=== PATIENT | female | born 1930 | race Caucasian/White ===

== ENCOUNTER 2017-10-23 09:21 | Inpatient (IN) ==
--- NOTE | 2017-10-23 09:37 | Emergency Department Report ---
General Adult HPI - General Stated complaint: poss sepss Time Seen by Provider: 10/23/17 09:37 Source: patient, other ([facility] STAFF) Mode of arrival: wheelchair Limitations: no limitations - History of Present Illness HPI narrative: 87-year-old female presents to the emergency department with a chief complaint of running a fever over the weekend. Her temperature was 101F. She was also noted to be in new onset atrial fibrillation by half-way staff. She denies any pain or discomfort. She is at baseline neuro status. She denies any other complaints or associated symptoms. She was at her care facility when her symptoms began. Symptoms been persistent in nature since onset. No other complaints or associated symptoms. - Related Data Home Medications Medication Instructions Recorded Confirmed Amlodipine [Norvasc] 5 mg PO DAILY 10/23/17 10/23/17 Aspirin Chewable [ASA] 81 mg PO DAILY 10/23/17 10/23/17 Ferrous Sulfate 325 mg PO DAILY 10/23/17 10/23/17 Losartan Potassium [Losartan 25 mg PO DAILY 10/23/17 10/23/17 Potassium] Omeprazole [Prilosec] 20 mg PO DAILY 10/23/17 10/23/17 Previous Rx's Medication Instructions Recorded Neurontin (gabapentin) 100 mg 100 mg PO BID #180 cap 01/26/17 capsule Allergies Allergy/AdvReac Type Severity Reaction Status Date / Time latanoprost Allergy Mild RASH Verified 06/12/08 10:42 timolol Allergy Mild RASH Verified 06/12/08 10:42 AROUND EYES brimonidine Allergy Unknown Verified 10/23/17 13:28 ALLERGAN Allergy Unknown Uncoded 10/23/17 13:28 Review of Systems Constitutional: Reports: fever (101F). Denies: chills Eyes: Denies: eye pain, eye discharge ENT: Denies: ear pain, throat pain Cardiovascular: Denies: chest pain, palpitations Respiratory: Denies: cough, dyspnea Gastrointestinal: Denies: abdominal pain, nausea, vomiting, diarrhea Genitourinary: Denies: urgency, dysuria Musculoskeletal: Denies: back pain, arthralgia Integumentary: Denies: erythema, rash Neurological: Denies: headache, numbness Psychiatric: Denies: anxiety, depression Endocrine: Denies: fatigue, heat or cold intolerance Hematological/Lymphatic: Denies: easy bleeding, easy bruising PFSH Patient Stated Medical History Cataracts Yes Cardiac Arrhythmia Yes Hypertension Yes Clinic Medical History (Last Updated 04/20/17 @ 09:42 by Karoline Orellana LPN) Hyponatremia (Chronic Medical) Glaucoma (Chronic Medical) Stress incontinence (Chronic Medical) Bilateral bunions (Chronic Medical) Peripheral neuropathy (Chronic Medical) Hypercholesterolemia (Chronic Medical) Constipation (Chronic Medical) HTN (hypertension) (Chronic Medical) Surgical History: D&C 1964. Hysterectomy with bladder suspension (ovaries left in) 1980. Left bunionectomy and repair of hammertoe L3 05/2008. Laser surgery bilat. eyes for elevated ocular pressures 2007. Right TKR 02/2013. Bilat. IOLI 2013. Right ITB release 2013 ([facility]) Family History: Family History (Last Updated 04/20/17 @ 09:46 by Karoline Orellana LPN) Father , at age 103 Old age Mother , at age 97 HTN (hypertension) CVA (cerebral vascular accident) Dementia Sister Osteoarthritis Nephew Rheumatoid arthritis - Social History Smoking status: Never smoker Substance use type: does not use Alcohol intake frequency: does not drink Household members: spouse, other Current occupational status: retired Current occupation: high school foreign language tutor Physical Exam - Limitations Limitations: no limitations - General General appearance: alert, in no apparent distress - Normal Exams: Head:: Normocephalic without trauma Eyes:: Pupils are PERRLA w/ EOMI, No scleral icterus, irritation, or foreign bodies noted ENMT:: No facial trauma, nasal exudates, pharyngeal erythema, or exudates are noted Dental: No fractured, loose, or missing teeth noted Neck:: Full range of motion, without adenopathy, JVD, bruits or thyromegaly Chest/Respirations:: Clear all lockhart, with good airflow, and symmetry bilaterally Cardiovascular:: without murmur or gallop (irregularly irregular rhythm), Pulses 2+ all extremities, capillary refill, <2 seconds all extremities Abdomen:: Bowel sounds positive, soft, non-tender, non-distended, no hepatosplenomegaly, masses or bruits noted Lymphatic:: No lymphadenopathy, or lymphedema noted Musculoskeletal:: No tenderness, or deformity noted, good range of motion, all extremities Integumentary:: No rashes, hives, or bruising noted, hair and nails, without abnormality Neurological:: Patient is alert, and oriented, cranial nerves, motor/sensory/ cerebellar, exams w/o gross deficits, to observation Psychiatric:: Patient exhibits, appropriate attention, emotion and affect Course Vital Signs Temperature 98.0 F 10/23/17 09:21 Pulse Rate 130 H 10/23/17 09:21 Respiratory Rate 18 10/23/17 09:21 Blood Pressure 114/55 10/23/17 09:21 Pulse Oximetry 95 10/23/17 09:21 Temperature 99.1 F 10/23/17 12:00 Pulse Rate 139 H 10/23/17 12:15 Respiratory Rate 20 10/23/17 12:15 Blood Pressure 123/64 10/23/17 12:15 Pulse Oximetry 96 10/23/17 12:15 Medical Decision Making - [facility] Narrative Medical decision making narrative: Labs / imaging were discussed in detail with the patient and questions are answered. Patient is given 500 mL normal saline intravenously times one. She is given Lopressor intravenously. She is given digoxin 0.5 mg IV times one. Patient is started on Rocephin at 1050 for treatment of a UTI when sepsis is considered. She has a lactic acid of less than 4 and is never truly hypotensive in the emergency department. Patient is reviewed with Dr. Leung due to the ST depressions located and V4/5/6. Cardiology will see and anticoagulate the patient as head CT is pending at the time of admission. Patient is admitted to the CCU in improved condition. No further orders from accepting or consulting physicians who were in agreement with the current plan of management. Patient is discussed with Dr. Monson and will be admitted to his care in improved condition. Patient is started on Rocephin at 1050 for treatment of a UTI when sepsis is considered. She has a lactic acid of less than 4 and is never truly hypotensive in the emergency department. - Differential Diagnosis afib, metabolic process, UTI, PNA - Lab Data Result diagrams: 10/23/17 09:54 10/23/17 09:54 Lab Results 10/23/17 10/23/17 10/23/17 Range/Units 09:54 09:54 09:54 WBC 18.8 H (4.5-11.0) T/MM3 RBC 4.02 (4.00-5.20) M/MM3 Hgb 12.9 (12-16) GM/DL Hct 38.2 (36-46) % MCV 95.0 (80-100) UM3 MCH 32.1 (26-34) UUG MCHC 33.8 (31-37) GM/DL RDW Std Deviation 43.6 (36.9-50.2) FL Plt Count 178 (130-400) T/MM3 MPV 9.9 (9.4-12.4) UM3 Immature Gran % (Auto) Not performed Neut % (Auto) Not performed Lymph % (Auto) Not performed Valley % (Auto) Not performed Eos % (Auto) Not performed Baso % (Auto) Not performed Neut # (Auto) Not performed Lymph # (Auto) Not performed [place] # (Auto) Not performed Eos # (Auto) Not performed Baso # (Auto) Not performed Abs Immat Gran (auto) Not performed Neutrophils % (Manual) 85.0 H (33-66) % Band Neutrophils % 8.0 H (0-6) % Monocytes % (Manual) 7.0 (0-9.0) % Neutrophils # (Manual) 16.0 H (1.8-7.7) T/MM3 Band Neutrophils # 1.5 T/MM3 Monocytes # (Manual) 1.3 H (0-0.8) T/MM3 RBC Morph Comment Normal Turbidity < 20 (0-20) Sodium 131 L (134-144) MEQ/L Potassium 3.1 L (3.6-5) MEQ/L Chloride 94 L (98-107) MEQ/L Carbon Dioxide 25 (22-30) MEQ/L Anion Gap 12 (5-15) MEQ/L BUN 26.0 H (7-17) MG/DL Creatinine 0.9 (0.7-1.2) mg/dL GFR Calculation 59 BUN/Creatinine Ratio 29 H (6-26) RATIO Glucose 174 H (65-110) MG/DL Calculated Osmolality 262 (261-280) MOSM/KG Calcium 9.1 (8.4-10.2) MG/DL Magnesium (1.6-2.3) MG/DL Total Bilirubin 1.10 (0.20-1.30) MG/DL Icterus Index < 2 (0-7) AST 28 (14-36) U/L ALT 27 (9-52) U/L Alkaline Phosphatase 71 (38-126) U/L Troponin I 0.023 (0-0.12) ng/ml Total Protein 6.6 (6.3-8.2) g/dL Albumin 3.6 (3.5-5.0) g/dL Globulin 3.0 (2.4-3.6) G/DL Albumin/Globulin Ratio 1.2 (1.1-2.2) RATIO Plasma Lactate 2.3 H (0.6-2.2) MMOL/L Procalcitonin 7.39 H* NG/ML TSH (0.47-4.68) MIU/L Specimen Hemolysis < 15 (0-25) Ur Collection Type Urine Color (YELLOW) Urine Clarity Urine pH (5.0-8.0) Ur Specific [place] (1.015-1.025) Urine Protein (NEGATIVE) Urine Glucose (UA) (NEGATIVE) Urine Ketones (NEGATIVE) Urine Occult Blood (NEGATIVE) Urine Nitrate (NEGATIVE) Urine Bilirubin (NEGATIVE) Urine Urobilinogen (NORMAL) EU/DL Ur Leukocyte Esterase (NEGATIVE) Urine RBC (0-3) /HPF Urine WBC (0-5) /HPF Ur Squamous Epith Cells Urine Bacteria (NEGATIVE) Ur Culture Indicated? 10/23/17 10/23/17 Range/Units 09:54 10:38 WBC (4.5-11.0) T/MM3 RBC (4.00-5.20) M/MM3 Hgb (12-16) GM/DL Hct (36-46) % MCV (80-100) UM3 MCH (26-34) UUG MCHC (31-37) GM/DL RDW Std Deviation (36.9-50.2) FL Plt Count (130-400) T/MM3 MPV (9.4-12.4) UM3 Immature Gran % (Auto) Neut % (Auto) Lymph % (Auto) [place] % (Auto) Eos % (Auto) Baso % (Auto) Neut # (Auto) Lymph # (Auto) [place] # (Auto) Eos # (Auto) Baso # (Auto) Abs Immat Gran (auto) Neutrophils % (Manual) (33-66) % Band Neutrophils % (0-6) % Monocytes % (Manual) (0-9.0) % Neutrophils # (Manual) (1.8-7.7) T/MM3 Band Neutrophils # T/MM3 Monocytes # (Manual) (0-0.8) T/MM3 RBC Morph Comment Turbidity (0-20) Sodium (134-144) MEQ/L Potassium (3.6-5) MEQ/L Chloride (98-107) MEQ/L Carbon Dioxide (22-30) MEQ/L Anion Gap (5-15) MEQ/L BUN (7-17) MG/DL Creatinine (0.7-1.2) mg/dL GFR Calculation BUN/Creatinine Ratio (6-26) RATIO Glucose (65-110) MG/DL Calculated Osmolality (261-280) MOSM/KG Calcium (8.4-10.2) MG/DL Magnesium 2.1 (1.6-2.3) MG/DL Total Bilirubin (0.20-1.30) MG/DL Icterus Index (0-7) AST (14-36) U/L ALT (9-52) U/L Alkaline Phosphatase (38-126) U/L Troponin I (0-0.12) ng/ml Total Protein (6.3-8.2) g/dL Albumin (3.5-5.0) g/dL Globulin (2.4-3.6) G/DL Albumin/Globulin Ratio (1.1-2.2) RATIO Plasma Lactate (0.6-2.2) MMOL/L Procalcitonin NG/ML TSH 1.87 (0.47-4.68) MIU/L Specimen Hemolysis (0-25) Ur Collection Type Urine, void-cc/notcc Urine Color Yellow (YELLOW) Urine Clarity Cloudy Urine pH 5.5 (5.0-8.0) Ur Specific [place] 1.025 (1.015-1.025) Urine Protein 1+ A (NEGATIVE) Urine Glucose (UA) Negative (NEGATIVE) Urine Ketones Trace A (NEGATIVE) Urine Occult Blood 2+ A (NEGATIVE) Urine Nitrate Positive A (NEGATIVE) Urine Bilirubin 1+ A (NEGATIVE) Urine Urobilinogen 1.0 (NORMAL) EU/DL Ur Leukocyte Esterase 2+ A (NEGATIVE) Urine RBC 3-5 H (0-3) /HPF Urine WBC 30-50 H (0-5) /HPF Ur Squamous Epith Cells 10-20 Urine Bacteria 4+ H (NEGATIVE) Ur Culture Indicated? Cult reflexed &setup - Radiology Data CXR - No acute processes. CT HEAD - No acute processes. - EKG Data EKG #1 EKG results narrative: Atrial fibrillation with rapid ventricular response. [address] depression in V4/V5/V6. No STEMI. Disposition Clinical Impression: AFIB UTI (urinary tract infection) Qualifiers: Urinary tract infection type: site unspecified Hematuria presence: with hematuria Qualified Code(s): N39.0 - Urinary tract infection, site not specified ; R31.9 - Hematuria, unspecified Disposition: 02 To [facility] Acute Care Condition: Stable Time of Disposition: 11:30 (Admit. Dr. Monson. ) - Seen By: physician
[2017-10-23] MEDS ORDERED: METOPROLOL 5mg/5ml INJECTION IVP ONE ×2 (10:01→13:01)
--- NOTE | 2017-10-23 10:26 | XRay Report ---
Indication: ams Procedure: XR chest 1V: Encounter: Initial Comparison: None Technique: A single portable AP chest radiograph was obtained. Findings: Lungs and airways: Normal lung volumes. No focal airspace consolidation. Normal pulmonary vasculature. Pleura: No pleural effusion or pneumothorax. Heart and mediastinum: The cardiomediastinal silhouette and great vessels are within normal limits. Osseous structures and soft tissues: No acute osseous abnormality is seen. Impression: No acute cardiopulmonary process. .
[2017-10-23] MEDS ORDERED: CEFTRIAXONE (ER USE ONLY) 1 GM in NS 100 ML IV ONE (10:50)
[2017-10-23] MEDS ORDERED: NS 1,000 ML IV SCH (11:15)
[2017-10-23] MEDS ORDERED: DIGOXIN 500 MCG/2 ML INJECTION IVP ONE (11:21)
[2017-10-23] MEDS: SALINE FLUSH 10ml SYRINGE IVF PRN ×3 (11:28→18:04)
--- NOTE | 2017-10-23 11:36 | History & Physical Report ---
History of Present Illness Date: 10/23/17 Chief complaint: "I'm a little weak" HPI: Liz Us is an 87 y/o woman who resides at [facility]. She has had fevers up to 101 on and off over the last 2-3 days. Nursing staff at [facility] report disorientation and confusion. On 10/23/17, her temp was 101.2, HR was variable between 60-100 and irregular, and she was tachypneic with RR of 26. She was transferred to [facility] ED for further eval. Liz admits to having fevers, feeling " a little weak", and having a mild nonproductive cough, but otherwise ROS was entirely neg. She was alert to person, place, and month. She admits to a hx of UTI. Telemetry showed a-fib with RVR with rates up to 150, confirmed by EKG. BP was running low, with MAPs 68-71. She received an IVF bolus and following consultation with Dr. Leung received Lopressor 2.5 mg IV. Labs were consistent with severe sepsis with a lactate level of 2.3. Procalcitonin was 7.39. UA showed UTI and she was given Rocephin 1 gm IV. WBC was high at 18.8 and she had a left shift with neut 85% and bands 8%. Na was low at 131 and she was also hypokalemic at 3.1. CXR was negative. Dr. James was notified and the pt was admitted to inpatient status in the CCU for further eval and treatment of severe sepsis d/t UTI, a-fib with rvr (new dx), and hypotension. LOS is expected to exceed 2 overnights. Review of Systems All systems PM: 10-point ROS was reviewed, no additional remarkable complaints except - Constitutional Constitutional: Present: fever(s). Absent: chills, fatigue, headache(s), weight gain, weight loss - EENET Eyes: Present: requires corrective lenses. Absent: change in vision Balance: Absent: ataxia Nose: Absent: obstruction Mouth/Throat: Absent: sore throat, changes in swallowing - Cardiovascular Cardiovascular: Absent: chest pain, palpitations, edema Rhythm: Absent: abnormal rhythm Vascular: Absent: pallor of an extermity, pedal edema, unilateral swelling - Respiratory Respiratory: Present: cough. Absent: dyspnea, dyspnea on exertion - Gastrointestinal Gastrointestinal: Absent: abdominal pain, constipation, diarrhea, nausea, vomiting - Genitourinary Genitourinary: Absent: dysuria, urinary frequency - Musculoskeletal Musculoskeletal: Present: muscle weakness. Absent: back pain, myalgias, stiffness - Integumentary/Breasts Integumentary: Absent: rash, wounds - Neurological Neurological: Present: weakness. Absent: abnormal gait, abnormal speech, confusion, dizziness, focal weakness, frequent falls, headache(s), loss of vision, numbness, paresthesias, sensory deficit - Psychiatric Psychiatric: Absent: anxiety - Endocrine Endocrine: Absent: heat intolerance, palpitations - Hematologic/Lymphatic Hematologic/Lymphatic: Absent: easy bleeding, easy bruising Past Medical History HTN (hypertension) Hypercholesterolemia Peripheral neuropathy Hyponatremia Glaucoma Stress incontinence Constipation Surgical History: D&C 1964. Hysterectomy with bladder suspension (ovaries left in) 1980. Left bunionectomy and repair of hammertoe L3 05/2008. Laser surgery bilat. eyes for elevated ocular pressures 2007. Right TKR 02/2013. Bilat. IOLI 2013. Right ITB release 2013 ([facility]) Family History: Father , at age 103 Old age Mother , at age 97 HTN (hypertension) CVA (cerebral vascular accident) Dementia Sister Osteoarthritis Nephew Rheumatoid arthritis Family History Updates: Reviewed. 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 Medications Home Medications Medication Instructions Recorded Confirmed Type Neurontin (gabapentin) 100 mg 100 mg PO BID #180 cap 01/26/17 10/23/17 Rx capsule Amlodipine [Norvasc] 5 mg PO DAILY 10/23/17 10/23/17 History Aspirin Chewable [ASA] 81 mg PO DAILY 10/23/17 10/23/17 History Ferrous Sulfate 325 mg PO DAILY 10/23/17 10/23/17 History Losartan Potassium [Losartan 25 mg PO DAILY 10/23/17 10/23/17 History Potassium] Omeprazole [Prilosec] 20 mg PO DAILY 10/23/17 10/23/17 History Allergies Allergy/AdvReac Type Severity Reaction Status Date / Time latanoprost Allergy Mild RASH Verified 06/12/08 10:42 timolol Allergy Mild RASH Verified 06/12/08 10:42 AROUND EYES brimonidine Allergy Unknown Verified 10/23/17 13:28 ALLERGAN Allergy Unknown Uncoded 10/23/17 13:28 Exam Vital Signs: Temperature 98.0 F 10/23/17 09:21 Pulse Rate 138 H 10/23/17 11:00 Respiratory Rate 18 10/23/17 11:00 Blood Pressure 99/64 10/23/17 11:00 Pulse Oximetry 93 10/23/17 11:00 Telemetry Rhythm: A-fib with RVR Height/Weight/BMI: Height 1.65 m Weight 65.4 kg - Constitutional Present: no acute distress, well nourished, well developed, thin - Routine HEENT Exam Head: Present: normocephalic Eye: Present: PERRL. Absent: conjunctival icterus, scleral injection ENT: Present: mucous membranes moist, oropharynx clear - Routine Neck Exam Present: supple - Routine Respiratory Exam Present: CTA bilaterally - Routine Cardiovascular Exam Present: tachycardia, irregularly irregular - Routine Abdominal Exam Present: soft, normoactive bowel sounds, non distended, non tender - Routine Extremities Exam Present: edema (trace non-pitting) - Routine Skin Exam Present: intact, dry, warm - Routine Neurological Exam Present: alert, oriented X3, CN II-XII intact (grossly), moving all extremities , vision grossly intact, hearing grossly intact, normal speech. Absent: motor deficit, facial asymmetry - Routine Psychiatric Exam Present: normal affect, normal thought process, cooperative Results - Labs CBC & Chem 7: 10/23/17 09:54 10/23/17 09:54 Microbiology Results: Microbiology 10/23/17 10:38 Urine, Voided (Cc/notcc) Urine Culture - Preliminary Culture Initiated - Results Pending 10/23/17 09:54 Peripheral/Iv Start Blood Culture - Preliminary Culture Initiated - Results Pending 10/23/17 09:59 Peripheral/Iv Start Blood Culture - Preliminary Culture Initiated - Results Pending - ECG Data Tracing #1 I reviewed this ECG and interpreted as documented below: - Imaging and Cardiology Chest x-ray Status: image reviewed by me (no pneumonia or signs of CHF) Assessment and Plan (1) Severe sepsis Current visit: Yes Status: Acute Assessment and Plan: IMPRESSION Severe sepsis with lactate level of 2.5 and hypotension UTI A-fib with RVR, new onset Hypokalemia (POA) HTN (hypertension) Hypercholesterolemia Peripheral neuropathy Hyponatremia, POA and chronic Constipation PLAN Admit, inpatient status to CCU under the hospitalist service. Severe sepsis with UTI, hypotension -- she received 500 ml bolus in the ED; will give 1500 more to complete 30 ml/kg bolus. Continue Rocephin daily. Follow results of blood/urine cx. Trend lactate, PCT. A-fib with RVR, hypotension -- Dr. Leung consulted. Lopressor 2.5 mg in ED was not particularly effective in slowing rate. Dig [address] Leung requested [address] head d/t reported confusion -- if no hemorrhage will anticoagulate with Lovenox. Check mg & TSH. Hold antihypertensives (amlodipine & losartan). Echo ordered. Trend trop. Hypokalemia -- KDur 40 mEq now and with supper. Advanced directives -- + DPOA, + Living Will. Full code. DVT Prophylaxis: Lovenox GI Prophylaxis: other (Prilosec) Resuscitation Status: Full Code - Physician Narrative Physician: Vincent James MD Narrative: Date: 10/23/17 Time: 1123 Have independently interviewed and examined pt. Chart reviewed. Case discussed with ED physician and my ADAPTIVE PHYSICAL EDUCATION SPECIALIST. Care plan developed with my supervision; agree with above. Presents to ED for evaluation of temp elevation and confusion over the weekend. Pt not sure why she is her - 'I feel fine.' Reports she has felt 'a little weak ' recently. No feeling SOA or congested. No chest pressure or pain. Denies ab pain or nausea. Not having pain in general. Evaluated in ED. HR increased and BP decreased; given IVF. Lab showed leukocytosis. Lactate elevated. CXR without infiltrate, but urine suspicious for infection. With pt's afib/rvr and severe sepsis criteria, she was admitted to CCU for supportive care. Anticipate greater than 2 midnights of care needed. CV: tachy, irregular Lungs: decreased, no crackles or wheeze AB: soft nt MSE : awake alert Plan: Inpatient admission to CCU. Rocephin for antimicrobial coverage - check urine C/S. IVF for hydration and BP support. Replace potassium Dr Leung consulted secondary to RVR. SCD for DVT prevention. Monitor lab. Full code. Hospital Course Summary Disclaimer: The visit summary below is not to be considered part of the above Progress Note. Hospital Course: 10/23/17 Admit, inpatient status to CCU under the hospitalist service. Severe sepsis with UTI, hypotension -- she received 500 ml bolus in the ED; will give 1500 more to complete 30 ml/kg bolus. Continue Rocephin daily. Follow results of blood/urine cx. Trend lactate, PCT. A-fib with RVR, hypotension -- Dr. Leung consulted. Lopressor 2.5 mg in ED was not particularly effective in slowing rate. Dig [address] Leung requested [address] head d/t reported confusion -- if no hemorrhage will anticoagulate with Lovenox. Check mg & TSH. Hold antihypertensives (amlodipine & losartan). Echo ordered. Trend trop. Hypokalemia -- KDur 40 mEq now and with supper. Advanced directives -- + DPOA, + Living Will. Full code.
[2017-10-23] MEDS ORDERED: NS with KCL 20 mEq 1,000 ML IV SCH (12:00)
[2017-10-23] MEDS ORDERED: ONDANSETRON 4 MG/2 ML INJECTION IVP PRN (12:11)
[2017-10-23] MEDS: NS 1,000 ML IV SCH ×3 (12:26→18:35)
[2017-10-23] MEDS ORDERED: ESMOLOL DRIP 2,500 MG/250 ML BAG IV PRN (12:54)
--- NOTE | 2017-10-23 13:27 | Cardiology Consult Note ---
<Lucinda Carranza - Last Filed: 10/24/17 09:21> History of Present Illness Consult date: 10/23/17 Requesting physician: Vincent James Consult reason: atrial fibrillation Chief complaint: atrial fibrillation History of present illness: Liz is an 87 year old woman who resides at [facility]. She has had fevers up to 101 on and off over the last 2-3 days. Nursing staff at [facility] report disorientation and confusion. On 10/23/17, her temp was 101.2, HR was variable between 60-100 and irregular, and she was tachypneic with RR of 26. She was transferred to [facility] for further eval. Liz admits to having fevers, feeling " a little weak", and having a mild nonproductive cough, but otherwise ROS was entirely neg. She was alert to person, place, and month. She admits to a hx of UTI. Telemetry showed a-fib with RVR with rates up to 150, confirmed by EKG. BP was running low, with MAPs 68-71. She received an IVF bolus and following consultation with Dr. Leung received Lopressor 2.5 mg IV. Labs were consistent with severe sepsis with a lactate level of 2.3. Procalcitonin was 7.39. UA showed UTI and she was given Rocephin 1 gm IV. WBC was high at 18.8 and she had a left shift with neut 85% and bands 8%. Na was low at 131 and she was also hypokalemic at 3.1. CXR was negative. Dr. James was notified and the pt was admitted to inpatient status in the CCU for further eval and treatment of severe sepsis d/t UTI, a-fib with rvr (new dx), and hypotension. LOS is expected to exceed 2 overnights. I examined her and she denies chest pain or pressure, skipping heart beat, racing heart beat, fatigue, dyspnea, lightheadedness or dizziness. Review of Systems - Constitutional Constitutional: Present: fever(s). Absent: chills, fatigue - EENMT Eyes: Absent: change in vision Balance: Absent: vertigo Mouth/Throat: Absent: sore throat - Cardiovascular Cardiovascular: Absent: chest pain, palpitations, syncope, dyspnea on exertion, orthopnea, edema Rhythm: Absent: abnormal rhythm Vascular: Absent: pedal edema - Respiratory Respiratory: Absent: cough, dyspnea, dyspnea on exertion - Gastrointestinal Gastrointestinal: Absent: abdominal pain, diarrhea, nausea, vomiting - Genitourinary Genitourinary: Absent: dysuria - Integumentary/Breasts Integumentary: Absent: rash - Neurological Neurological: Absent: dizziness - Endocrine Endocrine: Absent: palpitations [facility] Medical History (Last Updated 04/20/17 @ 09:42 by Karoline Orellana LPN) Hyponatremia (Chronic Medical) Glaucoma (Chronic Medical) Stress incontinence (Chronic Medical) Bilateral bunions (Chronic Medical) Peripheral neuropathy (Chronic Medical) Hypercholesterolemia (Chronic Medical) Constipation (Chronic Medical) HTN (hypertension) (Chronic Medical) Surgical History: D&C 1964. Hysterectomy with bladder suspension (ovaries left in) 1980. Left bunionectomy and repair of hammertoe L3 05/2008. Laser surgery bilat. eyes for elevated ocular pressures 2007. Right TKR 02/2013. Bilat. IOLI 2013. Right ITB release 2013 (Ryan) Family History: Family History (Last Updated 04/20/17 @ 09:46 by Karoline Orellana LPN) Father , at age 103 Old age Mother , at age 97 HTN (hypertension) CVA (cerebral vascular accident) Dementia Sister Osteoarthritis Nephew Rheumatoid arthritis Family History Updates: Reviewed. - Social History Smoking status: Never smoker Substance use type: does not use Alcohol intake frequency: does not drink Household members: spouse, other Current occupational status: retired Current occupation: middle school assistant principal Medications Home Medications Medication Instructions Recorded Confirmed Type Neurontin (gabapentin) 100 mg 100 mg PO BID #180 cap 01/26/17 10/23/17 Rx capsule Amlodipine [Norvasc] 5 mg PO DAILY 10/23/17 10/23/17 History Aspirin Chewable [ASA] 81 mg PO DAILY 10/23/17 10/23/17 History Ferrous Sulfate 325 mg PO DAILY 10/23/17 10/23/17 History Losartan Potassium 25 mg PO DAILY 10/23/17 10/23/17 History Omeprazole [Prilosec] 20 mg PO DAILY 10/23/17 10/23/17 History Carteolol HCl 1 drop OP DAILY 10/25/17 10/25/17 History Cholecalciferol (Vitamin D3) 1 cap PO DAILY 10/25/17 10/25/17 History [Vitamin D3] Amiodarone [Pacerone] 200 mg PO DAILY #30 tab 10/26/17 Rx Amox/Clav [Augmentin 875/125] 875 mg PO BID 5 Days #10 tab 10/26/17 Rx Apixaban [Eliquis] 5 mg PO BID #30 tab 10/26/17 Rx Allergies Allergy/AdvReac Type Severity Reaction Status Date / Time latanoprost Allergy Mild RASH Verified 06/12/08 10:42 timolol Allergy Mild RASH Verified 06/12/08 10:42 AROUND EYES brimonidine Allergy Unknown Verified 10/23/17 13:28 ALLERGAN Allergy Unknown Uncoded 10/23/17 13:28 Exam Vital signs: Temperature 99.1 F 10/23/17 12:00 Pulse Rate 139 H 10/23/17 12:15 Respiratory Rate 20 10/23/17 12:15 Blood Pressure 123/64 10/23/17 12:15 Pulse Oximetry 96 10/23/17 12:15 - Constitutional no acute distress, well nourished, cooperative - Routine HEENT Exam Head: Present: normocephalic ENT: Present: mucous membranes moist - Routine Neck Exam Absent: JVD, carotid bruit - Routine Chest/Breast/Axilla Exam Chest wall: Absent: tenderness - Routine Respiratory Exam Present: CTA bilaterally. Absent: rales, wheezes - Routine Cardiovascular Exam Present: tachycardia, irregular rhythm - Routine Abdominal Exam Present: soft, normoactive bowel sounds - Routine Extremities Exam Present: no edema - Routine Skin Exam Present: intact, dry, warm - Routine Neurological Exam Present: alert, oriented X3 - Routine Psychiatric Exam Present: normal affect, normal thought process Results 10/24/17 01:43 10/24/17 01:43 Intake and Output 10/22/17 10/23/17 10/23/17 22:59 06:59 14:59 Intake Total 0 / 500 Output Total 0 / 0 Balance 0 / 500 Intake: Oral 0 / 0 Output: Urine 0 / 0 Other: Weight 139 lb 15.896 oz Patient Weight 10/24/17 06:59 Weight 139 lb 15.896 oz - Imaging and Cardiology Echo: report reviewed Imaging & Cardiology Narrative: Date of Exam: 10/23/17 Ordering Provider: Hieu Day DO Type of Exam(s): XR chest 1V Reason for Exam(s): ams Indication: ams Procedure: XR chest 1V: Encounter: Initial Comparison: None Technique: A single portable AP chest radiograph was obtained. Findings: Lungs and airways: Normal lung volumes. No focal airspace consolidation. Normal pulmonary vasculature. Pleura: No pleural effusion or pneumothorax. Heart and mediastinum: The cardiomediastinal silhouette and great vessels are within normal limits. Osseous structures and soft tissues: No acute osseous abnormality is seen. Impression: No acute cardiopulmonary process. 10/23/17 13:30 10/24/17 09:22 Date of Exam: 10/23/17 Type of Exam(s): US echo doppler complete DATE OF PROCEDURE October 23, [address] Vincent James This is a two-dimensional echo with spectral Doppler, color-flow and M-mode. It was obtained in a patient with new-onset atrial fibrillation. This echo was obtained when patient was in atrial fibrillation. Left atrial dimension is normal. Left ventricular end-diastolic dimension is normal. Left ventricle wall thickness is normal. LV systolic function is normal with ejection fraction of 63%. Right atrium is normal. Right ventricle is normal. Aortic root dimension is normal. Mitral valve annulus is calcified. Mitral valve leaflets are normal. Aortic valve she is a trileaflet structure with no stenosis or insufficiency. Tricuspid valve shows mild-to- moderate tricuspid regurgitation with estimated pulmonary artery systolic pressure of 35. Pulmonary valve shows mild pulmonary insufficiency. There is small pericardial effusion with no echocardiographic evidence of tamponade. Inferior vena cava appears to be dilated. IMPRESSION 1. Atrial fibrillation. 2. Normal LV systolic function with ejection fraction of 63%. 3. Small pericardial effusion. 4. Dilated inferior vena cava. 5. Mitral annulus calcification. 6. [id number] tricuspid regurgitation with mild pulmonary hypertension with estimated pulmonary artery systolic pressure of 35. 6. Mild pulmonary insufficiency. EKG interpretations - EKG EKG shows: atrial fibrillation (with RVR) - Blocks, axis, hypertrophy, ST abn Repolarization changes or abnormalities: nonspecific abnormality, ST segment, and/or T wave Assessment and Plan - Assessment and Plan (1) Atrial fibrillation with RVR Status: Acute Given Metoprolol 2.5mg and Digoxin 500mg IV in ED - Rate remains >140s - Given Metoprolol 5mg IV and start Esmolol drip for rate control. - Lovenox 1mg/kg SQ BID for anticoagulation. - Monitor Renal, electrolytes, Hgb and platelets - EKG prn rhythm changes - 2D echo obtained - NPO for possible AUGUSTINA/DCCV Converted to SR. - Started Amiodarone Bolus and drip - EKG in AM - Continue to monitor cardiac telemetry (2) Severe sepsis Status: Acute (3) HTN (hypertension) Status: Chronic - Assessment and Plan New onset A Fib with RVR: Given Metoprolol 2.5mg and Digoxin 500mg IV in ED - Rate remains >140s - Given Metoprolol 5mg IV and start Esmolol drip for rate control. - Lovenox 1mg/kg SQ BID for anticoagulation. - Monitor Renal, electrolytes, Hgb and platelets - EKG prn rhythm changes - 2D echo obtained - NPO for possible AUGUSTINA/DCCV Thank you for the opportunity to participate in this patient's plan of care Converted to SR. - Started Amiodarone Bolus and drip - EKG in AM - Continue to monitor cardiac telemetry Hospital Course Summary Disclaimer: The visit summary below is not to be considered part of the above Progress Note. Hospital Course: 10/23/17 Admit, inpatient status to CCU under the hospitalist service. Severe sepsis with UTI, hypotension -- she received 500 ml bolus in the ED; will give 1500 more to complete 30 ml/kg bolus. Continue Rocephin daily. Follow results of blood/urine cx. Trend lactate, PCT. A-fib with RVR, hypotension -- Dr. Leung consulted. Lopressor 2.5 mg in ED was not particularly effective in slowing rate. Dig [address] Leung requested [address] head d/t reported confusion -- if no hemorrhage will anticoagulate with Lovenox. Check mg & TSH. Hold antihypertensives (amlodipine & losartan). Echo ordered. Trend trop. Hypokalemia -- KDur 40 mEq now and with supper. Advanced directives -- + DPOA, + Living Will. Full code. <Stanislaw Leung - Last Filed: 10/30/17 16:43> [facility] Patient Stated Medical History Peripheral Neuropathy Yes: feet and legs Syncope Yes Cataracts Yes Glaucoma Yes Cardiac Arrhythmia Yes: afib 10/23/17 Hypertension Yes Hx Incontinence Yes: stress Sepsis Yes: 10/23/17 Shingles Yes Clinic Medical History (Last Updated 04/20/17 @ 09:42 by Karoline Orellana LPN) Hyponatremia (Chronic Medical) Glaucoma (Chronic Medical) Stress incontinence (Chronic Medical) Bilateral bunions (Chronic Medical) Peripheral neuropathy (Chronic Medical) Hypercholesterolemia (Chronic Medical) Constipation (Chronic Medical) HTN (hypertension) (Chronic Medical) Family History: Family History (Last Updated 04/20/17 @ 09:46 by Karoline Orellana LPN) Father , at age 103 Old age Mother , at age 97 HTN (hypertension) CVA (cerebral vascular accident) Dementia Sister Osteoarthritis Nephew Rheumatoid arthritis Exam Vital signs: Temperature 97.1 F 10/26/17 08:00 Pulse Rate 74 10/26/17 08:00 Respiratory Rate 18 10/26/17 08:00 Blood Pressure 156/87 H 10/26/17 08:00 Pulse Oximetry 94 10/26/17 08:00 Results 10/26/17 00:24 10/26/17 00:24 Assessment and Plan - Attestation Attestation Narrative: 10/30/17 16:43 Recommendation After examining the patient I agree with the above assessment. I am involved in the formulation of the patient's plan of care. - Assessment and Plan (1) HTN (hypertension) Status: Chronic (2) Severe sepsis Status: Acute (3) Atrial fibrillation with RVR Status: Acute (4) Non-ST elevation myocardial infarction (NSTEMI), type 2 Status: Acute Hospital Course Summary Disclaimer: The visit summary below is not to be considered part of the above Progress Note.
--- NOTE | 2017-10-23 14:37 | CT Scan Report ---
EXAM: CT head/brain wo con DATE: 10/23/2017 12:00 AM ENCOUNTER: Initial INDICATION: ams COMPARISON: None available. TECHNIQUE: 5 mm axial tomographic images were obtained of the head without contrast. The current CT scan was performed using radiation dose-reduction techniques. FINDINGS: Ill defined hypoattenuations within the periventricular deep white matter, a nonspecific finding, however most suggestive of chronic small vessel ischemic disease. Intracranial atherosclerotic calcifications noted. The brown-white matter junction is otherwise normal. No intra or extra-axial mass or hemorrhage is identified. Multifocal dural calcifications. There is no midline shift. Symmetric prominence of the ventricles and cerebral sulci consistent with age appropriate cerebral volume loss. The ventricles are otherwise normal in shape and morphology. The basilar cisterns are patent. No acute osseous or soft tissue abnormality. The visualized paranasal sinuses are normal. The visualized portions of the orbits and globes are normal. The mastoid air cells are clear. IMPRESSION: 1. No acute intracranial process identified by CT. 2. Age appropriate cerebral volume loss and mild chronic small vessel ischemic disease. .
[2017-10-23] MEDS: LIDOCAINE 1% INJ 10 MG, POTASSIUM CHLORIDE INJ 10 MEQ in NS 100 ML IV SCH ×4 (14:58→18:35)
[2017-10-23] MEDS ORDERED: ACETAMINOPHEN 650 MG SUPPOSITORY PR PRN (15:27)
[2017-10-23] MEDS ORDERED: SALINE FLUSH 10ml SYRINGE ONE (15:34)
[2017-10-23] MEDS: ENOXAPARIN 60 MG/0.6 ML INJECTION SQ SCH (15:40)
[2017-10-23] MEDS ORDERED: AMIODARONE 150 MG in NS 100 ML IV ONE (16:49)
[2017-10-23] MEDS ORDERED: AMIODARONE 450 MG in NS 250ml 250 ML IV SCH (17:00)
[2017-10-23] MEDS ORDERED: BENZONATATE 100 MG CAPSULE PO PRN (19:53)
[2017-10-23] MEDS ORDERED: ENOXAPARIN 80 MG/0.8 ML INJECTION SQ SCH (21:00)
[2017-10-23] MEDS ORDERED: AMIODARONE 900 MG in NS 500ml 500 ML IV SCH (23:00)
[2017-10-24] MEDS: ACETAMINOPHEN 325 MG TABLET PO PRN ×3 (01:11→19:59)
[2017-10-24] MEDS: ENOXAPARIN 60 MG/0.6 ML INJECTION SQ SCH ×2 (03:51→16:30)
[2017-10-24] MEDS: NS 1,000 ML IV SCH ×2 (03:54→16:03)
[2017-10-24] MEDS: OMEPRAZOLE 20 MG CAPSULE PO SCH (06:01)
[2017-10-24] MEDS: AMIODARONE 200 MG TABLET PO SCH (08:57)
--- NOTE | 2017-10-24 09:14 | Echocardiogram ---
DATE OF PROCEDURE October 23, [address] Vincent James This is a two-dimensional echo with spectral Doppler, color-flow and M-mode. It was obtained in a patient with new-onset atrial fibrillation. This echo was obtained when patient was in atrial fibrillation. Left atrial dimension is normal. Left ventricular end-diastolic dimension is normal. Left ventricle wall thickness is normal. LV systolic function is normal with ejection fraction of 63%. Right atrium is normal. Right ventricle is normal. Aortic root dimension is normal. Mitral valve annulus is calcified. Mitral valve leaflets are normal. Aortic valve she is a trileaflet structure with no stenosis or insufficiency. Tricuspid valve shows mild-to- moderate tricuspid regurgitation with estimated pulmonary artery systolic pressure of 35. Pulmonary valve shows mild pulmonary insufficiency. There is small pericardial effusion with no echocardiographic evidence of tamponade. Inferior vena cava appears to be dilated. IMPRESSION 1. Atrial fibrillation. 2. Normal LV systolic function with ejection fraction of 63%. 3. Small pericardial effusion. 4. Dilated inferior vena cava. 5. Mitral annulus calcification. 6. [id number] tricuspid regurgitation with mild pulmonary hypertension with estimated pulmonary artery systolic pressure of 35. 6. Mild pulmonary insufficiency. MTDD
--- NOTE | 2017-10-24 09:31 | Cardiology Progress Note ---
<Lucinda Carranza M - Last Filed: 10/25/17 15:42> Subjective Principal diagnosis: A Fib RVR Interval history: Liz is seen in follow up for A Fib with RVR. She converted while on Esmolol drip for rate control. Amiodarone drip started to maintain SR. She denies cardiac complaints. No chest pain or pressure, palpitations, dyspnea, nausea or dizziness. Exam Vital signs: Temperature 98.1 F 10/24/17 04:08 Pulse Rate 67 10/24/17 07:00 Respiratory Rate 17 10/24/17 07:00 Blood Pressure 144/70 H 10/24/17 07:00 Pulse Oximetry 93 10/24/17 07:00 Inpatient Medications: Generic Name Dose Route Start Last Admin Trade Name Freq PRN Reason Stop Dose Admin Acetaminophen 650 mg 10/23/17 15:27 10/23/17 15:38 Tylenol Supp [place] 650 mg Q5H PRN Administration Pain Acetaminophen 325 - 650 mg 10/24/17 01:09 10/24/17 01:11 Tylenol PO 650 mg Q5H PRN Administration Discomfort Amiodarone HCl 200 mg 10/24/17 09:00 10/24/17 08:57 Pacerone PO 200 mg DAILY MARIAM Administration Benzonatate 100 mg 10/23/17 19:53 Tessalon Perles PO TID PRN Cough Enoxaparin Sodium 60 mg 10/23/17 15:30 10/24/17 03:51 Lovenox SQ 60 mg Q12H MARIAM Administration Ceftriaxone Sodium 1 g/ Sodium 50 mls @ 100 mls/hr 10/24/17 09:00 Chloride IV DAILY MARIAM Sodium Chloride 1,000 mls @ 100 mls/hr 10/23/17 18:30 10/24/17 07:00 Normal Saline IV 100 mls/hr .Q10H MARIAM Infusion Omeprazole 20 mg 10/24/17 06:30 10/24/17 06:01 Prilosec PO 20 mg ACB MARIAM Administration Ondansetron HCl 4 mg 10/23/17 12:11 Zofran IVP Q6H PRN Nausea Sodium Chloride 10 - 80 ml 10/23/17 09:37 10/23/17 18:04 Iv Flush IVF 10 ml PRN PRN Administration Flushing Discontinued Medications Generic Name Dose Route Start Last Admin Trade Name Freq PRN Reason Stop Dose Admin Digoxin 500 mcg 10/23/17 11:21 10/23/17 11:29 Lanoxin IVP 10/23/17 11:22 500 mcg O ONE Administration Enoxaparin Sodium 63 mg 10/23/17 21:00 Lovenox SQ BID MARIAM Sodium Chloride 500 mls @ 999.9 mls/hr 10/23/17 10:00 10/23/17 21:50 Normal Saline IV Not Given .Q30M MARIAM Ceftriaxone Sodium 1 gm/ 100 mls @ 200 mls/hr 10/23/17 10:50 10/23/17 11:04 Sodium Chloride IV 10/23/17 11:19 200 mls/hr O ONE Administration Sodium Chloride 1,000 mls @ 100 mls/hr 10/23/17 11:15 Normal Saline IV .Q10H MARIAM Sodium Chloride 1,000 mls @ 750 mls/hr 10/23/17 11:32 10/23/17 14:55 Normal Saline IV 10/23/17 14:11 Not Given .Q1H20M MARIAM Potassium Chloride/Sodium Chloride 1,000 mls @ 100 mls/hr 10/23/17 12:00 01/05 18:35 Ns With Kcl 20 Meq IV Infused .Q10H MARIAM Infusion Lidocaine HCl 10 mg/ Potassium 100 mls @ 100 mls/hr 10/23/17 12:11 Chloride 10 meq/ Sodium IV 10/23/17 16:24 Chloride .Q1H MARIAM Lidocaine HCl 10 mg/ Potassium 100 mls @ 100 mls/hr 10/23/17 13:30 10/23/17 18:35 Chloride 10 meq/ Sodium IV 10/23/17 17:43 Not Given Chloride .Q1H MARIAM Esmolol HCl 2,500 mg in 250 mls @ 19.05 mls/hr 10/23/17 12:54 10/23/17 17:52 Brevibloc Drip IV Infused .Q13H8M PRN Titration Protocol 50 MCG/KG/MIN Amiodarone HCl 900 mg/ Sodium 500 mls @ 16.66 mls/hr 10/23/17 23:00 10/24/17 07:00 Chloride IV 0.5 mg/min .Q24H MARIAM 16.7 mls/hr 0.5 MG/MIN Infusion Amiodarone HCl 450 mg/ Sodium 250 mls @ 33.33 mls/hr 10/23/17 17:00 10/23/17 23:46 Chloride IV 10/23/17 23:00 Infused .Q7H31M MARIAM Infusion 1 MG/MIN Amiodarone HCl 150 mg/ Sodium 103 mls @ 618 mls/hr 10/23/17 16:49 10/23/17 18 :03 Chloride IV 10/23/17 16:58 Infused O ONE Infusion Metoprolol Tartrate 2.5 mg 10/23/17 10:01 10/23/17 10:54 Lopressor IVP 10/23/17 10:02 2.5 mg ONCE ONE Administration Metoprolol Tartrate 5 mg 10/23/17 13:01 10/23/17 13:35 Lopressor IVP 10/23/17 13:02 5 mg ONCE ONE Administration Potassium Chloride 40 meq 10/23/17 11:51 K-Dur 20 Meq Tablet PO 10/23/17 11:52 O ONE Potassium Chloride 40 meq 10/23/17 17:30 K-Dur 20 Meq Tablet PO 10/23/17 17:31 O ONE Potassium Chloride 40 meq 10/23/17 18:31 10/23/17 18:38 K-Dur 20 Meq Tablet PO 10/23/17 18:32 40 meq O ONE Administration - Constitutional no acute distress, well nourished, cooperative - Routine HEENT Exam Head: Present: normocephalic ENT: Present: mucous membranes moist - Routine Neck Exam Absent: JVD, carotid bruit - Routine Chest/Breast/Axilla Exam Chest wall: Absent: tenderness - Routine Respiratory Exam Present: CTA bilaterally. Absent: rales, wheezes - Routine Cardiovascular Exam Present: RRR, no murmur. Absent: JVD - Routine Abdominal Exam Present: soft, normoactive bowel sounds - Routine Extremities Exam Present: edema - Routine Skin Exam Present: intact, dry, warm - Routine Neurological Exam Present: alert, oriented X3 - Routine Psychiatric Exam Present: normal affect, normal thought process - Additional findings Additional findings: Acetaminophen (Tylenol Supp) 650 mg VA Q5H PRN PRN Reason: Pain Last Admin: 10/23/17 15:38 Dose: 650 mg Acetaminophen (Tylenol) 325 - 650 mg PO Q5H PRN PRN Reason: Discomfort Last Admin: 10/24/17 01:11 Dose: 650 mg Amiodarone HCl (Pacerone) 200 mg PO DAILY [facility] Last Admin: 10/24/17 08:57 Dose: 200 mg Benzonatate (Tessalon Perles) 100 mg PO TID PRN PRN Reason: Cough Enoxaparin Sodium (Lovenox) 60 mg SQ Q12H MARIAM Last Admin: 10/24/17 03:51 Dose: 60 mg Ceftriaxone Sodium 1 g/ Sodium (Chloride) 50 mls @ 100 mls/hr IV DAILY MARIAM Sodium Chloride (Normal Saline) 1,000 mls @ 100 mls/hr IV .Q10H [facility] Last Infusion: 10/24/17 07:00 Dose: 100 mls/hr Omeprazole (Prilosec) 20 mg PO ACB MARIAM Last Admin: 10/24/17 06:01 Dose: 20 mg Ondansetron HCl (Zofran) 4 mg IVP Q6H PRN PRN Reason: Nausea Sodium Chloride (Iv Flush) 10 - 80 ml IVF PRN PRN PRN Reason: Flushing Last Admin: 10/23/17 18:04 Dose: 10 ml Results 10/25/17 05:17 10/25/17 05:17 Cardiac Enzymes 10/23/17 10/23/17 10/24/17 Range/Units 13:38 19:48 01:43 Troponin I 0.071 D 0.163 H D 0.108 (0-0.12) ng/ml CBC 10/24/17 Range/Units 01:43 WBC 14.8 H (4.5-11.0) T/MM3 RBC 3.35 L (4.00-5.20) M/MM3 Hgb 10.8 L D (12-16) GM/DL Hct 32.1 L D (36-46) % Plt Count 151 (130-400) T/MM3 Neut # (Auto) Not performed Lymph # (Auto) Not performed Stark # (Auto) Not performed Eos # (Auto) Not performed Baso # (Auto) Not performed Comprehensive Metabolic Panel 10/24/17 Range/Units 01:43 Sodium 132 L (134-144) MEQ/L Potassium 3.9 D (3.6-5) MEQ/L Chloride 102 D (98-107) MEQ/L Carbon Dioxide 23 (22-30) MEQ/L BUN 22.0 H (7-17) MG/DL Creatinine 0.7 D (0.7-1.2) mg/dL Glucose 113 H (65-110) MG/DL Calcium 8.3 L D (8.4-10.2) MG/DL Intake and Output 10/23/17 10/24/17 10/24/17 22:59 06:59 14:59 Intake Total 1639.231 / 8763.268 6590.917 / 1202.917 116.7 / 116.7 Output Total 40 / 40 125 / 125 Balance 1599.231 / 2605.533 4737.917 / 1077.917 116.7 / 116.7 Intake: IV 989.231 / 989.231 962.917 / 962.917 116.7 / 116.7 Amiodarone 150 mg In Ns 100 ml 103 / 103 @ 618 mls/hr IV O ONE Rx#: [id number] Amiodarone 450 mg In NS 250ml 131.564 / 131.564 58.83 / 58.83 250 ml @ 1 MG/MIN 33.33 mls/hr IV .Q7H31M MARIAM Rx#:[id number] Amiodarone 900 mg In NS 500ml 104.087 / 104.087 16.7 / 16.7 500 ml @ 0.5 MG/MIN 16.66 mls/ hr IV .Q24H MARIAM Rx#:[id number] Esmolol Drip 2,500 mg In 250 ml 158.000 / 158.000 @ 50 MCG/KG/MIN 19.05 mls/hr IV .Q13H8M PRN Rx#:[id number] Lidocaine 1% Inj 10 mg 255.000 / 255.000 Potassium Chloride Inj 10 meq In Ns 100 ml @ 100 mls/hr IV . Q1H MARIAM Rx#:[id number] NS with KCL 20 mEq 1,000 ml @ 0 / 0 100 mls/hr IV .Q10H MARIAM Rx#: [id number] Ns 1,000 ml @ 100 mls/hr IV . 341.667 / 341.667 800 / 800 100 / 100 Q10H MARIAM Rx#:[id number] Oral 650 / 650 240 / 240 Output: Urine 40 / 40 125 / 125 Stool 0 / 0 Emesis 0 / 0 Other: Urine Appearance Clear Clear Urine Color Yellow Dark Yellow Stool Color Brown Stool Consistency Soft Liquid Size of Bowel Movement Moderate # Voids 1 - Imaging and Cardiology Imaging & Cardiology Narrative: Date of Exam: 10/23/17 Type of Exam(s): US echo doppler complete DATE OF PROCEDURE October 23, [address] Vincent James This is a two-dimensional echo with spectral Doppler, color-flow and M-mode. It was obtained in a patient with new-onset atrial fibrillation. This echo was obtained when patient was in atrial fibrillation. Left atrial dimension is normal. Left ventricular end-diastolic dimension is normal. Left ventricle wall thickness is normal. LV systolic function is normal with ejection fraction of 63%. Right atrium is normal. Right ventricle is normal. Aortic root dimension is normal. Mitral valve annulus is calcified. Mitral valve leaflets are normal. Aortic valve she is a trileaflet structure with no stenosis or insufficiency. Tricuspid valve shows mild-to- moderate tricuspid regurgitation with estimated pulmonary artery systolic pressure of 35. Pulmonary valve shows mild pulmonary insufficiency. There is small pericardial effusion with no echocardiographic evidence of tamponade. Inferior vena cava appears to be dilated. IMPRESSION 1. Atrial fibrillation. 2. Normal LV systolic function with ejection fraction of 63%. 3. Small pericardial effusion. 4. Dilated inferior vena cava. 5. Mitral annulus calcification. 6. [id number] tricuspid regurgitation with mild pulmonary hypertension with estimated pulmonary artery systolic pressure of 35. 6. Mild pulmonary insufficiency. 10/25/17 15:43 Assessment and Plan - Assessment and Plan (1) Atrial fibrillation with RVR Status: Acute (2) Severe sepsis Status: Acute (3) HTN (hypertension) Status: Chronic (4) Non-ST elevation myocardial infarction (NSTEMI), type 2 Status: Acute - Troponin 1.63 last evening, type II NSTEMI - trending down - Assessment and Plan 10/23/17 Given Metoprolol 2.5mg and Digoxin 500mg IV in ED - Rate remains >140s - EKG: ST depression V4, V5, V6 - Trend serial troponin levels - Given Metoprolol 5mg IV and start Esmolol drip for rate control. - Lovenox 1mg/kg SQ BID for anticoagulation. - Monitor Renal, electrolytes, Hgb and platelets - EKG prn rhythm changes - 2D echo obtained - NPO for possible AUGUSTINA/DCCV Converted to SR. - Started Amiodarone Bolus and drip - EKG in AM - Continue to monitor cardiac telemetry 10/24/17 - Troponin 1.63 last evening, type II NSTEMI - trending down - Remains in SR. - Change IV Amiodarone to PO Amiodarone - NA 132, 1500mL fluid restriction - Hgb down to 10.8 from 12.9, wait and watch before changing OAC - Continue Lovenox 1mg/kg SQ BID for anticoagulation. Hospital Course Summary Disclaimer: The visit summary below is not to be considered part of the above Progress Note. Hospital Course: 10/23/17 Admit, inpatient status to CCU under the hospitalist service. Severe sepsis with UTI, hypotension -- she received 500 ml bolus in the ED; will give 1500 more to complete 30 ml/kg bolus. Continue Rocephin daily. Follow results of blood/urine cx. Trend lactate, PCT. A-fib with RVR, hypotension -- Dr. Leung consulted. Lopressor 2.5 mg in ED was not particularly effective in slowing rate. Dig [address] Leung requested CT head d/t reported confusion -- if no hemorrhage will anticoagulate with Lovenox. Check mg & TSH. Hold antihypertensives (amlodipine & losartan). Echo ordered. Trend trop. Hypokalemia -- KDur 40 mEq now and with supper. Advanced directives -- + DPOA, + Living Will. Full code. <Stanislaw Leung - Last Filed: 10/30/17 16:54> Exam Vital signs: Temperature 97.1 F 10/26/17 08:00 Pulse Rate 74 10/26/17 08:00 Respiratory Rate 18 10/26/17 08:00 Blood Pressure 156/87 H 10/26/17 08:00 Pulse Oximetry 94 10/26/17 08:00 Inpatient Medications: Discontinued Medications Generic Name Dose Route Start Last Admin Trade Name Freq PRN Reason Stop Dose Admin Acetaminophen 650 mg 10/23/17 15:27 10/23/17 15:38 Tylenol Supp [place] 650 mg Q5H PRN Administration Pain Acetaminophen 325 - 650 mg 10/24/17 01:09 10/25/17 08:44 Tylenol PO 650 mg Q5H PRN Administration Discomfort Amiodarone HCl 200 mg 10/24/17 09:00 10/26/17 08:02 Pacerone PO 200 mg DAILY MARIAM Administration Amlodipine Besylate 5 mg 10/25/17 10:30 10/26/17 08:04 Norvasc PO 5 mg DAILY MARIAM Administration Apixaban 5 mg 10/25/17 21:00 10/26/17 08:03 Eliquis PO 5 mg BID MARIAM Administration Aspirin 81 mg 10/25/17 10:30 10/26/17 08:48 Asa PO 81 mg DAILY MARIAM Administration Benzonatate 100 mg 10/23/17 19:53 Tessalon Perles PO TID PRN Cough Carteolol HCl 1 drops 10/26/17 09:00 10/26/17 08:02 Ocupress RIGHT EYE 1 drops DAILY MARIAM Administration Cholecalciferol 1,000 unit 10/26/17 09:00 10/26/17 08:48 Vit. D-3 PO 1,000 unit DAILY MARIAM Administration Digoxin 500 mcg 10/23/17 11:21 10/23/17 11:29 Lanoxin IVP 10/23/17 11:22 500 mcg O ONE Administration Digoxin 250 mcg 10/26/17 01:30 10/26/17 15:05 Lanoxin IVP 10/26/17 07:31 Not Given Q6H [facility] Enoxaparin Sodium 63 mg 10/23/17 21:00 Lovenox SQ BID [facility] Enoxaparin Sodium 60 mg 10/23/17 15:30 10/25/17 04:29 Lovenox SQ 60 mg Q12H MARIAM Administration Ferrous Sulfate 324 mg 10/26/17 08:00 10/26/17 08:04 Feosol PO 324 mg WB MARIAM Administration Gabapentin 100 mg 10/25/17 21:00 10/26/17 08:04 Neurontin PO 100 mg BID MARIAM Administration Sodium Chloride 500 mls @ 999.9 mls/hr 10/23/17 10:00 10/23/17 21:50 Normal Saline IV Not Given .Q30M MARIAM Ceftriaxone Sodium 1 gm/ 100 mls @ 200 mls/hr 10/23/17 10:50 10/23/17 11:34 Sodium Chloride IV 10/23/17 11:19 Infused O ONE Infusion Sodium Chloride 1,000 mls @ 100 mls/hr 10/23/17 11:15 10/25/17 18:51 Normal Saline IV Not Given .Q10H MARIAM Sodium Chloride 1,000 mls @ 750 mls/hr 10/23/17 11:32 10/23/17 14:55 Normal Saline IV 10/23/17 14:11 Not Given .Q1H20M MARIAM Potassium Chloride/Sodium Chloride 1,000 mls @ 100 mls/hr 10/23/17 12:00 01/05 18:35 Ns With Kcl 20 Meq IV Infused .Q10H [facility]IAM Infusion Ceftriaxone Sodium 1 g/ Sodium 50 mls @ 100 mls/hr 10/24/17 09:00 10/26/17 18 :18 Chloride IV Infused DAILY [facility] Infusion Lidocaine HCl 10 mg/ Potassium 100 mls @ 100 mls/hr 10/23/17 12:11 10/25/17 18:52 Chloride 10 meq/ Sodium IV 10/23/17 16:24 Not Given Chloride .Q1H MARIAM Lidocaine HCl 10 mg/ Potassium 100 mls @ 100 mls/hr 10/23/17 13:30 10/23/17 18:35 Chloride 10 meq/ Sodium IV 10/23/17 17:43 Not Given Chloride .Q1H MARIAM Esmolol HCl 2,500 mg in 250 mls @ 19.05 mls/hr 10/23/17 12:54 10/23/17 17:52 Brevibloc Drip IV Infused .Q13H8M PRN Titration Protocol 50 MCG/KG/MIN Amiodarone HCl 900 mg/ Sodium 500 mls @ 16.66 mls/hr 10/23/17 23:00 10/24/17 08:50 Chloride IV Infused .Q24H MARIAM Infusion 0.5 MG/MIN Amiodarone HCl 450 mg/ Sodium 250 mls @ 33.33 mls/hr 10/23/17 17:00 10/23/17 23:46 Chloride IV 10/23/17 23:00 Infused .Q7H31M MARIAM Infusion 1 MG/MIN Amiodarone HCl 150 mg/ Sodium 103 mls @ 618 mls/hr 10/23/17 16:49 10/23/17 18 :03 Chloride IV 10/23/17 16:58 Infused O ONE Infusion Sodium Chloride 1,000 mls @ 100 mls/hr 10/23/17 18:30 10/24/17 15:00 Normal Saline IV Infused .Q10H MARIAM Infusion Sodium Chloride 1,000 mls @ 75 mls/hr 10/24/17 12:15 10/25/17 12:15 Normal Saline IV 40 mls/hr .[id number] MARIAM Infusion Sodium Chloride 1,000 mls @ 40 mls/hr 10/25/17 12:15 10/26/17 10:04 Normal Saline IV 0 mls/hr .Q24H MARIAM Infusion Losartan Potassium 25 mg 10/25/17 10:30 10/26/17 08:03 Cozaar PO 25 mg DAILY MARIAM Administration Metoprolol Tartrate 2.5 mg 10/23/17 10:01 10/23/17 10:54 Lopressor IVP 10/23/17 10:02 2.5 mg ONCE ONE Administration Metoprolol Tartrate 5 mg 10/23/17 13:01 10/23/17 13:35 Lopressor IVP 10/23/17 13:02 5 mg ONCE ONE Administration Metoprolol Tartrate 5 mg 10/25/17 23:25 10/25/17 23:36 Lopressor IVP 10/25/17 23:26 5 mg O ONE Administration Metoprolol Tartrate 5 mg 10/26/17 15:00 Lopressor IVP 10/26/17 15:01 O ONE Metoprolol Tartrate 5 mg 10/26/17 00:28 10/26/17 00:29 Lopressor IVP 10/26/17 00:29 5 mg O ONE Administration Morphine Sulfate 2 mg 10/24/17 13:29 Morphine Sulfate Inj IVP Q2HR PRN Pain Omeprazole 20 mg 10/24/17 06:30 10/26/17 06:50 Prilosec PO 20 mg ACB MARIAM Administration Ondansetron HCl 4 mg 10/23/17 12:11 Zofran IVP Q6H PRN Nausea Potassium Chloride 40 meq 10/23/17 11:51 10/25/17 18:51 K-Dur 20 Meq Tablet PO 10/23/17 11:52 Not Given O ONE Potassium Chloride 40 meq 10/23/17 17:30 K-Dur 20 Meq Tablet PO 10/23/17 17:31 O ONE Potassium Chloride 40 meq 10/23/17 18:31 10/23/17 18:38 K-Dur 20 Meq Tablet PO 10/23/17 18:32 40 meq O ONE Administration Potassium Chloride 40 meq 10/25/17 08:50 10/25/17 09:30 K-Dur 20 Meq Tablet PO 10/25/17 08:51 40 meq O ONE Administration Potassium Chloride 10 meq 10/25/17 17:30 10/25/17 16:54 Micro-K 10 Meq Capsule PO 10/25/17 17:31 10 meq O ONE Administration Sodium Chloride 10 - 80 ml 10/23/17 09:37 10/23/17 18:04 Iv Flush IVF 10 ml PRN PRN Administration Flushing Results 10/26/17 00:24 10/26/17 00:24 Assessment and Plan - Assessment and Plan (1) HTN (hypertension) Status: Chronic (2) Severe sepsis Status: Acute (3) Atrial fibrillation with RVR Status: Acute (4) Non-ST elevation myocardial infarction (NSTEMI), type 2 Status: Acute - Attestation Attestation Narrative: 10/30/17 16:54 Recommendation After examining the patient I agree with the above assessment. I am involved in the formulation of the patient's plan of care. Hospital Course Summary Disclaimer: The visit summary below is not to be considered part of the above Progress Note.
[2017-10-24] MEDS: CEFTRIAXONE 1 G in NS 50 ML IV SCH (10:29)
--- NOTE | 2017-10-24 12:04 | Progress Note ---
- Date 10/24/17 Subjective: F/U: Severe sepsis, UTI Doing better today. Still feels tired/weak, but not worsening from yesterday in that regard. Breathing okay-not SOA or congested. No cough/sputum or pain with breathing. Denies chest pressure or fullness. No nausea or ab pain. Appetite decreased. Urinating well. Objective Vital signs: Temperature 98.1 F 10/24/17 04:08 Pulse Rate 67 10/24/17 07:00 Respiratory Rate 17 10/24/17 07:00 Blood Pressure 144/70 H 10/24/17 07:00 Pulse Oximetry 93 10/24/17 07:00 Height/Weight/BMI: Height 1.65 m Weight 63.5 kg Body Mass Index 23.3 - Constitutional Present: well nourished, well developed, average body habitus, cooperative - Routine HEENT Exam Head: Present: normocephalic, atraumatic Eye: Present: EOMI, PERRL ENT: Present: mucous membranes moist - Routine Respiratory Exam Present: decreased breath sounds. Absent: rales, respiratory distress, rhonchi , stridor, wheezes, crackles - Routine Cardiovascular Exam Present: RRR, murmur - Routine Abdominal Exam Present: soft, normoactive bowel sounds, non distended, non tender. Absent: guarding - Routine Extremities Exam Present: edema (+1 B upper/lower edema), pulses intact. Absent: cyanosis, clubbing Comments: SCD in place - Routine Musculoskeletal Exam Musculoskeletal: Present: no clubbing or cyanosis - Routine Skin Exam Present: dry, warm - Routine Neurological Exam Present: alert, CN II-XII intact, moving all extremities, vision grossly intact , hearing grossly intact, normal speech. Absent: motor deficit, altered mental status - Routine Psychiatric Exam Present: normal affect, normal thought process, cooperative. Absent: agitated Results - Labs CBC & Chem 7: 10/24/17 01:43 10/24/17 01:43 Assessment and Plan (1) Severe sepsis Current visit: Yes Status: Acute Assessment and Plan: IMPRESSION Severe sepsis with lactate level of 2.5 and hypotension UTI - Gram Neg raheel growing A-fib with RVR, new onset - converted with medications Type II NSTEMI secondary to sepsis/afib Hypokalemia (POA) HTN (hypertension) Hypercholesterolemia Peripheral neuropathy Hyponatremia, POA and chronic Constipation PLAN Continue with Rocephin for urinary coverage - check on C/S. Decrease IVF of NS to 75cc/hr. Oral Amiodarone ordered by cardiology - loaded with IV amiodarone yesterday and pt converted to NSR. Blood pressure improving - would continue to hold Norvasc and Losartan for now due to resolving sepsis. Consult with PT/OT tomorrow to start increasing strength and functional status. With HR improved and severe sepsis improving, will transfer to medical floor on tele for continuation of care. Recheck CBC in am due to resolving sepsis and leukocytosis. Repeat CMP and Mg in am due to hyponatremia and medication use. Case discussed with CCU nursing. Time spent with patient care 25 minutes. DVT Prophylaxis: SCD's, Lovenox Resuscitation Status: Full Code - Time spent with patient Time with patient PN: 25 minutes - Physician Narrative Physician: Vincent James MD Narrative: Date: 10/24/17 Time: 1201 Hospital Course Summary Disclaimer: The visit summary below is not to be considered part of the above Progress Note. Hospital Course: 10/23/17 Admit, inpatient status to CCU under the hospitalist service. Severe sepsis with UTI, hypotension -- she received 500 ml bolus in the ED; will give 1500 more to complete 30 ml/kg bolus. Continue Rocephin daily. Follow results of blood/urine cx. Trend lactate, PCT. A-fib with RVR, hypotension -- Dr. Leung consulted. Lopressor 2.5 mg in ED was not particularly effective in slowing rate. Dig [address] Leung requested CT head d/t reported confusion -- if no hemorrhage will anticoagulate with Lovenox. Check mg & TSH. Hold antihypertensives (amlodipine & losartan). Echo ordered. Trend trop. Hypokalemia -- KDur 40 mEq now and with supper. Advanced directives -- + DPOA, + Living Will. Full code. 10/24/17 Continue with Rocephin for urinary coverage - check on C/S. Decrease IVF of NS to 75cc/hr. Oral Amiodarone ordered by cardiology - loaded with IV amiodarone yesterday and pt converted to NSR. Blood pressure improving - would continue to hold Norvasc and Losartan for now due to resolving sepsis. Consult with PT/OT tomorrow to start increasing strength and functional status. With HR improved and severe sepsis improving, will transfer to medical floor on tele for continuation of care.
[2017-10-24] MEDS ORDERED: MORPHINE SULFATE 2mg INJECTION IVP PRN (13:29)
[2017-10-24 18:06] VITALS: BMI 25.9
[2017-10-25] MEDS: NS 1,000 ML IV SCH ×2 (02:00→05:14)
[2017-10-25] MEDS: ACETAMINOPHEN 325 MG TABLET PO PRN ×2 (02:10→08:44)
[2017-10-25] MEDS: ENOXAPARIN 60 MG/0.6 ML INJECTION SQ SCH (04:29)
[2017-10-25] MEDS: OMEPRAZOLE 20 MG CAPSULE PO SCH (05:52)
[2017-10-25] MEDS: AMIODARONE 200 MG TABLET PO SCH (08:44)
[2017-10-25] MEDS: CEFTRIAXONE 1 G in NS 50 ML IV SCH (08:44)
--- NOTE | 2017-10-25 10:40 | Progress Note ---
- Date 10/25/17 Subjective: Mrs Us is seen today in follow up. She is up in the chair and states that she is feeling better today. Denies feeling short of breath or having pain. She is comfortably breathing on room air without distress. Appetite good. Noted BP to be elevated at 179/88. Objective Vital signs: Temperature 96.3 F L 10/25/17 07:10 Pulse Rate 79 10/25/17 07:10 Respiratory Rate 18 10/25/17 07:10 Blood Pressure 179/88 H 10/25/17 07:10 Pulse Oximetry 93 10/25/17 07:10 Height/Weight/BMI: Height 1.65 m Weight 68.3 kg Body Mass Index 25.9 - Constitutional Present: no acute distress, well nourished, well developed - Routine HEENT Exam Eye: Present: EOMI ENT: Present: mucous membranes moist, dentition normal - Routine Respiratory Exam Present: CTA bilaterally. Absent: wheezes - Routine Cardiovascular Exam Present: RRR, S1, S2. Absent: murmur - Routine Abdominal Exam Present: soft, normoactive bowel sounds, non distended. Absent: tenderness - Routine Extremities Exam Present: full ROM, normal capillary refill - Routine Back/Spine/Pelvis Exam Back/Spine: Present: full ROM - Routine Skin Exam Present: intact, dry, warm - Routine Neurological Exam Present: alert, CN II-XII intact - Routine Lymphatic Exam Lymphatic: Absent: adenopathy - Routine Psychiatric Exam Present: normal affect, cooperative Results - Labs CBC & Chem 7: 10/25/17 05:17 10/25/17 05:17 Assessment and Plan (1) Severe sepsis Current visit: Yes Status: Acute Assessment and Plan: IMPRESSION Severe sepsis with lactate level of 2.5 and hypotension UTI - E coli A-fib with RVR, new onset - converted with medications Type II NSTEMI secondary to sepsis/afib Hypokalemia (POA) HTN (hypertension) Hypercholesterolemia Peripheral neuropathy Hyponatremia, POA and chronic Constipation PLAN Continue with Rocephin for urinary coverage - Culture revels E-coli. BP elevated- Will resume home Norvasc and Losartan Appreciate cariology management- Continues on PO amiodarone Lovenox BID tx for anticoagulation Consult with PT/OT today to evaluate strength Pt resides at [place]. Case discussed with nursing and attending, Dr Erika James Continue with Rocephin - culture showing E coli, sensitivities pending. Clinically responding to antibiotics-WBC decreasing and BP improving. Decrease IV to 40cc/hr. Replace potassium. Can restart home antihypertensive. Encourage continue therapy and activities to help strength. Discussed with pt and family about possible skilled care at time of discharge to help improve her strength - pt ideally would like to go home to , but open for skilled. Will need to monitor her strength progression to help make determination on disposition needs. DVT Prophylaxis: SCD's, Lovenox Resuscitation Status: Full Code - Time spent with patient Time with patient PN: 25 minutes Coordination of Care: >50% of visit spent providing counseling/coordination of care - Physician Narrative Physician: Vincent James MD Narrative: Date: 10/25/17 Time: 1034 Have independently interviewed and examined pt. Chart reviewed. Case discussed with Family and my [employer]. Care plan developed with my supervision; agree with above. Feeling better, but still very weak and having decreased appetite. No nausea. Breathing okay, slight cough. Did work with therapy-walked in [place]. Strength slow to improve. No f/c. No chest pain. Lungs: decreased CV: regular AB; soft nt/nd MSE: awake alert Plan: Continue with Rocephin - culture showing E coli, sensitivities pending. Clinically responding to antibiotics-WBC decreasing and BP improving. Replace potassium. Can restart home antihypertensive. Encourage continue therapy and activities to help strength. Decrease IV to 40cc/hr. Discussed with pt and family about possible skilled care at time of discharge to help improve her strength - pt ideally would like to go home to , but open for skilled. Will need to monitor her strength progression to help make determination on disposition needs. Discussed patient clinical status and treatments and potential discharge needs at length with pt and family. Questions answered. Hospital Course Summary Disclaimer: The visit summary below is not to be considered part of the above Progress Note. Hospital Course: 10/23/17 Admit, inpatient status to CCU under the hospitalist service. Severe sepsis with UTI, hypotension -- she received 500 ml bolus in the ED; will give 1500 more to complete 30 ml/kg bolus. Continue Rocephin daily. Follow results of blood/urine cx. Trend lactate, PCT. A-fib with RVR, hypotension -- Dr. Leung consulted. Lopressor 2.5 mg in ED was not particularly effective in slowing rate. Dig [address] Leung requested CT head d/t reported confusion -- if no hemorrhage will anticoagulate with Lovenox. Check mg & TSH. Hold antihypertensives (amlodipine & losartan). Echo ordered. Trend trop. Hypokalemia -- KDur 40 mEq now and with supper. Advanced directives -- + DPOA, + Living Will. Full code. 10/24/17 Continue with Rocephin for urinary coverage - check on C/S. Decrease IVF of NS to 75cc/hr. Oral Amiodarone ordered by cardiology - loaded with IV amiodarone yesterday and pt converted to NSR. Blood pressure improving - would continue to hold Norvasc and Losartan for now due to resolving sepsis. Consult with PT/OT tomorrow to start increasing strength and functional status. With HR improved and severe sepsis improving, will transfer to medical floor on tele for continuation of care. 10/25/17 Continue with Rocephin for urinary coverage - Culture revels E-coli. Decrease IV to 40cc/hr. BP elevated - will resume home Norvasc and Losartan. Appreciate cariology management- Continues on PO amiodarone. Lovenox BID tx for anticoagulation. Consult with PT/OT today to evaluate strength. Pt resides at [place]. assisted living. Discussed about possible skilled care at discharge to help strength.
[2017-10-25] MEDS: AMLODIPINE 5 MG TABLET PO SCH (11:18)
[2017-10-25] MEDS: LOSARTAN 50 MG TABLET PO SCH (11:18)
[2017-10-25] MEDS: ASPIRIN 81 MG CHEWABLE TABLET PO SCH (11:19)
[2017-10-25] MEDS ORDERED: NS 1,000 ML IV SCH (12:15)
--- NOTE | 2017-10-25 15:47 | Cardiology Progress Note ---
<Lucinda Carranza M - Last Filed: 10/25/17 16:07> Subjective Principal diagnosis: A Fib RVR Interval history: Liz is seen in follow up for A Fib with RVR. She is sitting up in the recliner in her room on Medical. She denies cardiac complaints. No chest pain or pressure , palpitations, dyspnea, nausea or dizziness. Exam Vital signs: Temperature 98.6 F 10/25/17 12:00 Pulse Rate 70 10/25/17 12:00 Respiratory Rate 16 10/25/17 12:00 Blood Pressure 151/85 H 10/25/17 12:00 Pulse Oximetry 97 10/25/17 12:00 Inpatient Medications: Generic Name Dose Route Start Last Admin Trade Name Freq PRN Reason Stop Dose Admin Acetaminophen 325 - 650 mg 10/24/17 01:09 10/25/17 08:44 Tylenol PO 650 mg Q5H PRN Administration Discomfort Amiodarone HCl 200 mg 10/24/17 09:00 10/25/17 08:44 Pacerone PO 200 mg DAILY [facility]IAM Administration Amlodipine Besylate 5 mg 10/25/17 10:30 10/25/17 11:18 Norvasc PO 5 mg DAILY [facility]IAM Administration Apixaban 5 mg 10/25/17 21:00 Eliquis PO BID MARIAM Aspirin 81 mg 10/25/17 10:30 10/25/17 11:19 Asa PO 81 mg DAILY [facility]IAM Administration Benzonatate 100 mg 10/23/17 19:53 Tessalon Perles PO TID PRN Cough Carteolol HCl 1 drops 10/26/17 09:00 Ocupress RIGHT EYE DAILY MARIAM Cholecalciferol 1,000 unit 10/26/17 09:00 Vit. D-3 PO DAILY MARIAM Ferrous Sulfate 324 mg 10/26/17 09:00 Feosol PO DAILY MARAIM Gabapentin 100 mg 10/25/17 21:00 Neurontin PO BID MARIAM Ceftriaxone Sodium 1 g/ Sodium 50 mls @ 100 mls/hr 10/24/17 09:00 10/25/17 09 :22 Chloride IV Infused DAILY [facility]IAM Infusion Sodium Chloride 1,000 mls @ 40 mls/hr 10/25/17 12:15 Normal Saline IV .Q24H MARIAM Losartan Potassium 25 mg 10/25/17 10:30 10/25/17 11:18 Cozaar PO 25 mg DAILY [facility] Administration Morphine Sulfate 2 mg 10/24/17 13:29 Morphine Sulfate Inj IVP Q2HR PRN Pain Omeprazole 20 mg 10/24/17 06:30 10/25/17 05:52 Prilosec PO 20 mg ACB AMRIAM Administration Ondansetron HCl 4 mg 10/23/17 12:11 Zofran IVP Q6H PRN Nausea Potassium Chloride 10 meq 10/25/17 17:30 Micro-K 10 Meq Capsule PO 10/25/17 17:31 O ONE Sodium Chloride 10 - 80 ml 10/23/17 09:37 10/23/17 18:04 Iv Flush IVF 10 ml PRN PRN Administration Flushing Discontinued Medications Generic Name Dose Route Start Last Admin Trade Name Freq PRN Reason Stop Dose Admin Acetaminophen 650 mg 10/23/17 15:27 10/23/17 15:38 Tylenol Supp ND 650 mg Q5H PRN Administration Pain Digoxin 500 mcg 10/23/17 11:21 10/23/17 11:29 Lanoxin IVP 10/23/17 11:22 500 mcg O ONE Administration Enoxaparin Sodium 63 mg 10/23/17 21:00 Lovenox SQ BID MARIAM Enoxaparin Sodium 60 mg 10/23/17 15:30 10/25/17 04:29 Lovenox SQ 60 mg Q12H MARIAM Administration Sodium Chloride 500 mls @ 999.9 mls/hr 10/23/17 10:00 10/23/17 21:50 Normal Saline IV Not Given .Q30M MARIAM Ceftriaxone Sodium 1 gm/ 100 mls @ 200 mls/hr 10/23/17 10:50 10/23/17 11:34 Sodium Chloride IV 10/23/17 11:19 Infused O ONE Infusion Sodium Chloride 1,000 mls @ 100 mls/hr 10/23/17 11:15 Normal Saline IV .Q10H MARIAM Sodium Chloride 1,000 mls @ 750 mls/hr 10/23/17 11:32 10/23/17 14:55 Normal Saline IV 10/23/17 14:11 Not Given .Q1H20M MARIAM Potassium Chloride/Sodium Chloride 1,000 mls @ 100 mls/hr 10/23/17 12:00 01/05 18:35 Ns With Kcl 20 Meq IV Infused .Q10H [facility]IAM Infusion Lidocaine HCl 10 mg/ Potassium 100 mls @ 100 mls/hr 10/23/17 12:11 Chloride 10 meq/ Sodium IV 10/23/17 16:24 Chloride .Q1H MARIAM Lidocaine HCl 10 mg/ Potassium 100 mls @ 100 mls/hr 10/23/17 13:30 10/23/17 18:35 Chloride 10 meq/ Sodium IV 10/23/17 17:43 Not Given Chloride .Q1H MARIAM Esmolol HCl 2,500 mg in 250 mls @ 19.05 mls/hr 10/23/17 12:54 10/23/17 17:52 Brevibloc Drip IV Infused .Q13H8M PRN Titration Protocol 50 MCG/KG/MIN Amiodarone HCl 900 mg/ Sodium 500 mls @ 16.66 mls/hr 10/23/17 23:00 10/24/17 08:50 Chloride IV Infused .Q24H [facility]IAM Infusion 0.5 MG/MIN Amiodarone HCl 450 mg/ Sodium 250 mls @ 33.33 mls/hr 10/23/17 17:00 10/23/17 23:46 Chloride IV 10/23/17 23:00 Infused .Q7H31M [facility]IAM Infusion 1 MG/MIN Amiodarone HCl 150 mg/ Sodium 103 mls @ 618 mls/hr 10/23/17 16:49 10/23/17 18 :03 Chloride IV 10/23/17 16:58 Infused O ONE Infusion Sodium Chloride 1,000 mls @ 100 mls/hr 10/23/17 18:30 10/24/17 15:00 Normal Saline IV Infused .Q10H [facility] Infusion Sodium Chloride 1,000 mls @ 75 mls/hr 10/24/17 12:15 10/25/17 12:15 Normal Saline IV 40 mls/hr .[id number] [facility]IAM Infusion Metoprolol Tartrate 2.5 mg 10/23/17 10:01 10/23/17 10:54 Lopressor IVP 10/23/17 10:02 2.5 mg ONCE ONE Administration Metoprolol Tartrate 5 mg 10/23/17 13:01 10/23/17 13:35 Lopressor IVP 10/23/17 13:02 5 mg ONCE ONE Administration Potassium Chloride 40 meq 10/23/17 11:51 K-Dur 20 Meq Tablet PO 10/23/17 11:52 O ONE Potassium Chloride 40 meq 10/23/17 17:30 K-Dur 20 Meq Tablet PO 10/23/17 17:31 O ONE Potassium Chloride 40 meq 10/23/17 18:31 10/23/17 18:38 K-Dur 20 Meq Tablet PO 10/23/17 18:32 40 meq O ONE Administration Potassium Chloride 40 meq 10/25/17 08:50 10/25/17 09:30 K-Dur 20 Meq Tablet PO 10/25/17 08:51 40 meq O ONE Administration - Constitutional no acute distress, well nourished, cooperative - Routine HEENT Exam Head: Present: normocephalic ENT: Present: mucous membranes moist - Routine Neck Exam Absent: JVD, carotid bruit - Routine Chest/Breast/Axilla Exam Chest wall: Absent: tenderness - Routine Respiratory Exam Present: CTA bilaterally. Absent: rales, wheezes - Routine Cardiovascular Exam Present: RRR, no murmur - Routine Abdominal Exam Present: soft, normoactive bowel sounds - Routine Extremities Exam Present: no edema - Routine Skin Exam Present: intact, dry, warm - Routine Neurological Exam Present: alert, oriented X3 - Routine Psychiatric Exam Present: normal affect, normal thought process - Additional findings Additional findings: Acetaminophen (Tylenol) 325 - 650 mg PO Q5H PRN PRN Reason: Discomfort Last Admin: 10/25/17 08:44 Dose: 650 mg Amiodarone HCl (Pacerone) 200 mg PO DAILY [facility] Last Admin: 10/25/17 08:44 Dose: 200 mg Amlodipine Besylate (Norvasc) 5 mg PO DAILY [facility] Last Admin: 10/25/17 11:18 Dose: 5 mg Apixaban (Eliquis) 5 mg PO BID [facility] Aspirin (Asa) 81 mg PO DAILY [facility] Last Admin: 10/25/17 11:19 Dose: 81 mg Benzonatate (Tessalon Perles) 100 mg PO TID PRN PRN Reason: Cough Carteolol HCl (Ocupress) 1 drops RIGHT EYE DAILY [facility] Cholecalciferol (Vit. D-3) 1,000 unit PO DAILY [facility] Ferrous Sulfate (Feosol) 324 mg PO DAILY [facility] Gabapentin (Neurontin) 100 mg PO BID [facility] Ceftriaxone Sodium 1 g/ Sodium (Chloride) 50 mls @ 100 mls/hr IV DAILY [facility] Last Infusion: 10/25/17 09:22 Dose: Infused Sodium Chloride (Normal Saline) 1,000 mls @ 40 mls/hr IV .Q24H [facility] Losartan Potassium (Cozaar) 25 mg PO DAILY [facility] Last Admin: 10/25/17 11:18 Dose: 25 mg Morphine Sulfate (Morphine Sulfate Inj) 2 mg IVP Q2HR PRN PRN Reason: Pain Omeprazole (Prilosec) 20 mg PO ACB [facility] Last Admin: 10/25/17 05:52 Dose: 20 mg Ondansetron HCl (Zofran) 4 mg IVP Q6H PRN PRN Reason: Nausea Potassium Chloride (Micro-K 10 Meq Capsule) 10 meq PO O ONE Stop: 10/25/17 17:31 Sodium Chloride (Iv Flush) 10 - 80 ml IVF PRN PRN PRN Reason: Flushing Last Admin: 10/23/17 18:04 Dose: 10 ml Results 10/25/17 05:17 10/25/17 05:17 Cardiac Enzymes 10/25/17 Range/Units 05:17 AST 21 (14-36) U/L CBC 10/25/17 Range/Units 05:17 WBC 10.8 (4.5-11.0) T/MM3 RBC 3.53 L (4.00-5.20) M/MM3 Hgb 11.3 L (12-16) GM/DL Hct 33.4 L (36-46) % Plt Count 177 (130-400) T/MM3 Neut # (Auto) Not performed Lymph # (Auto) Not performed [place] # (Auto) Not performed Eos # (Auto) Not performed Baso # (Auto) Not performed Comprehensive Metabolic Panel 10/25/17 Range/Units 05:17 Sodium 131 L (134-144) MEQ/L Potassium 3.0 L D (3.6-5) MEQ/L Chloride 100 (98-107) MEQ/L Carbon Dioxide 23 (22-30) MEQ/L BUN 10.0 D (7-17) MG/DL Creatinine 0.5 L D (0.7-1.2) mg/dL Glucose 104 (65-110) MG/DL Calcium 8.3 L (8.4-10.2) MG/DL AST 21 (14-36) U/L ALT 31 (9-52) U/L Alkaline Phosphatase 67 (38-126) U/L Total Protein 5.7 L (6.3-8.2) g/dL Albumin 2.8 L (3.5-5.0) g/dL Intake and Output 10/25/17 10/25/17 10/25/17 06:59 14:59 22:59 Intake Total 917.5 / 917.5 936.25 / 936.25 175 / 175 Balance 917.5 / 917.5 936.25 / 936.25 175 / 175 Intake: IV 917.5 / 917.5 576.25 / 576.25 Ceftriaxone 1 g In Ns 50 ml @ 50 / 50 100 mls/hr IV DAILY [facility]IAM Rx#: [id number] Ns 1,000 ml @ 75 mls/hr IV . 917.5 / 917.5 526.25 / 526.25 [id number] MARIAM Rx#:[id number] Oral 360 / 360 175 / 175 Other: Urine Appearance Clear Urine Color Bright Yellow Urine Odor Normal # Voids 1 Weight 150 lb 9.211 oz Patient Weight 10/26/17 06:59 Weight 150 lb 9.211 oz Assessment and Plan - Assessment and Plan (1) Atrial fibrillation with RVR Status: Acute (2) Severe sepsis Status: Acute (3) HTN (hypertension) Status: Chronic (4) Non-ST elevation myocardial infarction (NSTEMI), type 2 Status: Acute - Assessment and Plan 10/23/17 Given Metoprolol 2.5mg and Digoxin 500mg IV in ED - Rate remains >140s - EKG: ST depression V4, V5, V6 - Trend serial troponin levels - Given Metoprolol 5mg IV and start Esmolol drip for rate control. - Lovenox 1mg/kg SQ BID for anticoagulation. - Monitor Renal, electrolytes, Hgb and platelets - EKG prn rhythm changes - 2D echo obtained - NPO for possible AUGUSTINA/DCCV Converted to SR. - Started Amiodarone Bolus and drip - EKG in AM - Continue to monitor cardiac telemetry 10/24/17 - Troponin 1.63 last evening, type II NSTEMI - trending down - Remains in SR. - Change IV Amiodarone to PO Amiodarone - NA 132, 1500mL fluid restriction - Hgb down to 10.8 from 12.9, wait and watch before changing OAC - Continue Lovenox 1mg/kg SQ BID for anticoagulation. 10/25/17 remains in SR, Continue Amiodarone. - HGB stable change Lovenox to Eliquis 5mg BID Hospital Course Summary Disclaimer: The visit summary below is not to be considered part of the above Progress Note. Hospital Course: 10/23/17 Admit, inpatient status to CCU under the hospitalist service. Severe sepsis with UTI, hypotension -- she received 500 ml bolus in the ED; will give 1500 more to complete 30 ml/kg bolus. Continue Rocephin daily. Follow results of blood/urine cx. Trend lactate, PCT. A-fib with RVR, hypotension -- Dr. Leung consulted. Lopressor 2.5 mg in ED was not particularly effective in slowing rate. Dig [address] Leung requested CT head d/t reported confusion -- if no hemorrhage will anticoagulate with Lovenox. Check mg & TSH. Hold antihypertensives (amlodipine & losartan). Echo ordered. Trend trop. Hypokalemia -- KDur 40 mEq now and with supper. Advanced directives -- + DPOA, + Living Will. Full code. <Stanislaw Leung - Last Filed: 10/31/17 13:40> Exam Vital signs: Temperature 97.1 F 10/26/17 08:00 Pulse Rate 74 10/26/17 08:00 Respiratory Rate 18 10/26/17 08:00 Blood Pressure 156/87 H 10/26/17 08:00 Pulse Oximetry 94 10/26/17 08:00 Inpatient Medications: Discontinued Medications Generic Name Dose Route Start Last Admin Trade Name Freq PRN Reason Stop Dose Admin Acetaminophen 650 mg 10/23/17 15:27 10/23/17 15:38 Tylenol Supp ND 650 mg Q5H PRN Administration Pain Acetaminophen 325 - 650 mg 10/24/17 01:09 10/25/17 08:44 Tylenol PO 650 mg Q5H PRN Administration Discomfort Amiodarone HCl 200 mg 10/24/17 09:00 10/26/17 08:02 Pacerone PO 200 mg DAILY [facility]IAM Administration Amlodipine Besylate 5 mg 10/25/17 10:30 10/26/17 08:04 Norvasc PO 5 mg DAILY [facility]IAM Administration Apixaban 5 mg 10/25/17 21:00 10/26/17 08:03 Eliquis PO 5 mg BID [facility]IAM Administration Aspirin 81 mg 10/25/17 10:30 10/26/17 08:48 Asa PO 81 mg DAILY [facility] Administration Benzonatate 100 mg 10/23/17 19:53 Tessalon Perles PO TID PRN Cough Carteolol HCl 1 drops 10/26/17 09:00 10/26/17 08:02 Ocupress RIGHT EYE 1 drops DAILY [facility] Administration Cholecalciferol 1,000 unit 10/26/17 09:00 10/26/17 08:48 Vit. D-3 PO 1,000 unit DAILY [facility]IAM Administration Digoxin 500 mcg 10/23/17 11:21 10/23/17 11:29 Lanoxin IVP 10/23/17 11:22 500 mcg O ONE Administration Digoxin 250 mcg 10/26/17 01:30 10/26/17 15:05 Lanoxin IVP 10/26/17 07:31 Not Given Q6H MARIAM Enoxaparin Sodium 63 mg 10/23/17 21:00 Lovenox SQ BID [facility]IAM Enoxaparin Sodium 60 mg 10/23/17 15:30 10/25/17 04:29 Lovenox SQ 60 mg Q12H MARIAM Administration Ferrous Sulfate 324 mg 10/26/17 08:00 10/26/17 08:04 Feosol PO 324 mg WB MARIAM Administration Gabapentin 100 mg 10/25/17 21:00 10/26/17 08:04 Neurontin PO 100 mg BID MARIAM Administration Sodium Chloride 500 mls @ 999.9 mls/hr 10/23/17 10:00 10/23/17 21:50 Normal Saline IV Not Given .Q30M [facility]IAM Ceftriaxone Sodium 1 gm/ 100 mls @ 200 mls/hr 10/23/17 10:50 10/23/17 11:34 Sodium Chloride IV 10/23/17 11:19 Infused O ONE Infusion Sodium Chloride 1,000 mls @ 100 mls/hr 10/23/17 11:15 10/25/17 18:51 Normal Saline IV Not Given .Q10H [facility]IAM Sodium Chloride 1,000 mls @ 750 mls/hr 10/23/17 11:32 10/23/17 14:55 Normal Saline IV 10/23/17 14:11 Not Given .Q1H20M [facility] Potassium Chloride/Sodium Chloride 1,000 mls @ 100 mls/hr 10/23/17 12:00 01/05 18:35 Ns With Kcl 20 Meq IV Infused .Q10H [facility] Infusion Ceftriaxone Sodium 1 g/ Sodium 50 mls @ 100 mls/hr 10/24/17 09:00 10/26/17 18 :18 Chloride IV Infused DAILY [facility] Infusion Lidocaine HCl 10 mg/ Potassium 100 mls @ 100 mls/hr 10/23/17 12:11 10/25/17 18:52 Chloride 10 meq/ Sodium IV 10/23/17 16:24 Not Given Chloride .Q1H [facility] Lidocaine HCl 10 mg/ Potassium 100 mls @ 100 mls/hr 10/23/17 13:30 10/23/17 18:35 Chloride 10 meq/ Sodium IV 10/23/17 17:43 Not Given Chloride .Q1H [facility] Esmolol HCl 2,500 mg in 250 mls @ 19.05 mls/hr 10/23/17 12:54 10/23/17 17:52 Brevibloc Drip IV Infused .Q13H8M PRN Titration Protocol 50 MCG/KG/MIN Amiodarone HCl 900 mg/ Sodium 500 mls @ 16.66 mls/hr 10/23/17 23:00 10/24/17 08:50 Chloride IV Infused .Q24H [facility] Infusion 0.5 MG/MIN Amiodarone HCl 450 mg/ Sodium 250 mls @ 33.33 mls/hr 10/23/17 17:00 10/23/17 23:46 Chloride IV 10/23/17 23:00 Infused .Q7H31M MAIRAM Infusion 1 MG/MIN Amiodarone HCl 150 mg/ Sodium 103 mls @ 618 mls/hr 10/23/17 16:49 10/23/17 18 :03 Chloride IV 10/23/17 16:58 Infused O ONE Infusion Sodium Chloride 1,000 mls @ 100 mls/hr 10/23/17 18:30 10/24/17 15:00 Normal Saline IV Infused .Q10H [facility] Infusion Sodium Chloride 1,000 mls @ 75 mls/hr 10/24/17 12:15 10/25/17 12:15 Normal Saline IV 40 mls/hr .[id number] [facility]IAM Infusion Sodium Chloride 1,000 mls @ 40 mls/hr 10/25/17 12:15 10/26/17 10:04 Normal Saline IV 0 mls/hr .Q24H [facility]IAM Infusion Losartan Potassium 25 mg 10/25/17 10:30 10/26/17 08:03 Cozaar PO 25 mg DAILY [facility] Administration Metoprolol Tartrate 2.5 mg 10/23/17 10:01 10/23/17 10:54 Lopressor IVP 10/23/17 10:02 2.5 mg ONCE ONE Administration Metoprolol Tartrate 5 mg 10/23/17 13:01 10/23/17 13:35 Lopressor IVP 10/23/17 13:02 5 mg ONCE ONE Administration Metoprolol Tartrate 5 mg 10/25/17 23:25 10/25/17 23:36 Lopressor IVP 10/25/17 23:26 5 mg O ONE Administration Metoprolol Tartrate 5 mg 10/26/17 15:00 Lopressor IVP 10/26/17 15:01 O ONE Metoprolol Tartrate 5 mg 10/26/17 00:28 10/26/17 00:29 Lopressor IVP 10/26/17 00:29 5 mg O ONE Administration Morphine Sulfate 2 mg 10/24/17 13:29 Morphine Sulfate Inj IVP Q2HR PRN Pain Omeprazole 20 mg 10/24/17 06:30 10/26/17 06:50 Prilosec PO 20 mg ACB MARIAM Administration Ondansetron HCl 4 mg 10/23/17 12:11 Zofran IVP Q6H PRN Nausea Potassium Chloride 40 meq 10/23/17 11:51 10/25/17 18:51 K-Dur 20 Meq Tablet PO 10/23/17 11:52 Not Given O ONE Potassium Chloride 40 meq 10/23/17 17:30 K-Dur 20 Meq Tablet PO 10/23/17 17:31 O ONE Potassium Chloride 40 meq 10/23/17 18:31 10/23/17 18:38 K-Dur 20 Meq Tablet PO 10/23/17 18:32 40 meq O ONE Administration Potassium Chloride 40 meq 10/25/17 08:50 10/25/17 09:30 K-Dur 20 Meq Tablet PO 10/25/17 08:51 40 meq O ONE Administration Potassium Chloride 10 meq 10/25/17 17:30 10/25/17 16:54 Micro-K 10 Meq Capsule PO 10/25/17 17:31 10 meq O ONE Administration Sodium Chloride 10 - 80 ml 10/23/17 09:37 10/23/17 18:04 Iv Flush IVF 10 ml PRN PRN Administration Flushing Results 10/26/17 00:24 10/26/17 00:24 Assessment and Plan - Assessment and Plan (1) HTN (hypertension) Status: Chronic (2) Severe sepsis Status: Acute (3) Atrial fibrillation with RVR Status: Acute (4) Non-ST elevation myocardial infarction (NSTEMI), type 2 Status: Acute - Attestation Attestation Narrative: 10/31/17 13:39 Recommendation After examining the patient I agree with the above assessment. I am involved in the formulation of the patient's plan of care. Hospital Course Summary Disclaimer: The visit summary below is not to be considered part of the above Progress Note.
[2017-10-25] MEDS: LIDOCAINE 1% INJ 10 MG, POTASSIUM CHLORIDE INJ 10 MEQ in NS 100 ML IV SCH ×2 (18:51→18:52)
[2017-10-25] MEDS: GABAPENTIN 100 MG CAPSULE PO SCH (21:30)
[2017-10-25] MEDS: APIXABAN 5 MG TABLET PO SCH (21:30)
[2017-10-25] MEDS ORDERED: METOPROLOL 5mg/5ml INJECTION IVP ONE (23:25)
[2017-10-26] MEDS ORDERED: METOPROLOL 5mg/5ml INJECTION IVP ONE ×2 (00:28→15:00)
[2017-10-26] MEDS: DIGOXIN 500 MCG/2 ML INJECTION IVP SCH ×2 (01:31→15:05)
[2017-10-26] MEDS: OMEPRAZOLE 20 MG CAPSULE PO SCH (06:50)
[2017-10-26] MEDS ORDERED: FERROUS SULFATE 324 MG TABLET PO SCH (08:00)
[2017-10-26] MEDS: CEFTRIAXONE 1 G in NS 50 ML IV SCH (08:01)
[2017-10-26] MEDS: AMIODARONE 200 MG TABLET PO SCH (08:02)
[2017-10-26] MEDS: APIXABAN 5 MG TABLET PO SCH (08:03)
[2017-10-26] MEDS: LOSARTAN 50 MG TABLET PO SCH (08:03)
[2017-10-26] MEDS: AMLODIPINE 5 MG TABLET PO SCH (08:04)
[2017-10-26] MEDS: GABAPENTIN 100 MG CAPSULE PO SCH (08:04)
[2017-10-26 08:10] VITALS: BP 156/87; PULSE 74; RESP 18; TEMP 97.1; O2SAT 94
[2017-10-26] MEDS: ASPIRIN 81 MG CHEWABLE TABLET PO SCH (08:48)
[2017-10-26] MEDS ORDERED: CARTEOLOL 1% RIGHT EYE SCH (09:00)
[2017-10-26] MEDS ORDERED: EYE RIGHT EYE SCH (09:00)
--- NOTE | 2017-10-26 11:04 | Extended Care Facility Orders ---
Admission Orders Admit to:: Half-Way Allergies/Adverse Reactions: Allergies latanoprost Allergy (Mild, Verified 06/12/08 10:42) RASH timolol Allergy (Mild, Verified 06/12/08 10:42) RASH AROUND EYES brimonidine Allergy (Unknown, Verified 10/23/17 13:28) PER H&P DATED 01-22-15 pt does not recall specific allergy to this med however ALLERGAN Allergy (Unknown, Uncoded 10/23/17 13:28) pt does not recall allergy to this medication Admitting Diagnosis: Severe Sepsis, UTI, A-fib Admitting Physician: Liza Liang MD Attending Physician: Liza Liang MD Code Status: Full Code Anticiapted Length of Stay: 30 days or less Diet: 10/23/17 Dinner Cardiac Diet [DIET] Sodium Restriction: 2GRAM Fat Content: LOW 10/24/17 Breakfast Cardiac Diet [DIET] Sodium Restriction: 2GRAM Fluid Restriction: FR 1500ML Fat Content: LOW May use Facility Protocol or Standing Orders: Yes May have flu vaccine: Yes Evaluations/Treatment: PT, OT Half-Way Certification: I certify that SNF services are required to be given on an Inpatient basis because of the patients need for long term care on a continuing basis for the condition(s) for which he/she received inpatient hospital services prior to his/her transfer to the SNF. SNF inpatient care is necessary for the following reasons Indication for Half-Way: Other (PT,OT) - Additional Information Referrals: Volodymyr Rodriguez MD [Family Provider] - (Schedule follow-up appointment for 1 week) Additional Orders: Take Augmentin twice a day until gone for UTI
--- NOTE | 2017-10-26 14:05 | Discharge Summary ---
Discharge Information Date of admission: 10/23/17 11:24 Anticipated date of discharge: 10/26/17 Attending Physician: Liza Liang MD Primary care physician: Volodymyr Rodriguez MD Consults: Dr Leung- Cardiology - Discharge Diagnosis (1) Severe sepsis Status: Acute Severe sepsis with lactate level of 2.5 and hypotension UTI - E coli A-fib with RVR, new onset - converted with medications Type II NSTEMI secondary to sepsis/afib Hypokalemia (POA) HTN (hypertension) Hypercholesterolemia Peripheral neuropathy Hyponatremia, POA and chronic Constipation - Procedures Procedures: None - Laboratory Labs: 10/26/17 00:24 10/26/17 00:24 - Microbiology Microbiology 10/23/17 09:59 Peripheral/Iv Start Blood Culture - Preliminary No Growth After 3 Days 10/23/17 09:54 Peripheral/Iv Start Blood Culture - Preliminary No Growth After 3 Days 10/23/17 10:38 Urine, Voided (Cc/notcc) Urine Culture - Final Escherichia coli - Radiology Radiology: 10/23/17-chest x-ray-no acute cardiopulmonary disease 10/23/17-echocardiogram- IMPRESSION 1. Atrial fibrillation. 2. Normal LV systolic function with ejection fraction of 63%. 3. Small pericardial effusion. 4. Dilated inferior vena cava. 5. Mitral annulus calcification. 6. [id number] tricuspid regurgitation with mild pulmonary hypertension with estimated pulmonary artery systolic pressure of 35. 6. Mild pulmonary insufficiency. 10/23/17- Ct Head- IMPRESSION: 1. No acute intracranial process identified by CT. 2. Age appropriate cerebral volume loss and mild chronic small vessel ischemic disease. - Pathology None History of Present Illness HPI: Liz Us is an 87 y/o woman who resides at [facility]. She has had fevers up to 101 on and off over the last 2-3 days. Nursing staff at [facility] report disorientation and confusion. On 10/23/17, her temp was 101.2, HR was variable between 60-100 and irregular, and she was tachypneic with RR of 26. She was transferred [place] [facility] [place] eval. Liz admits to having fevers, feeling " a little weak", and having a mild nonproductive cough, but otherwise ROS was entirely neg. She was alert to person, place, and month. She admits to a hx of UTI. Telemetry showed a-fib with RVR with rates up to 150, confirmed by EKG. BP was running low, with MAPs 68-71. She received an IVF bolus and following consultation with Dr. Leung received Lopressor 2.5 mg IV. Labs were consistent with severe sepsis with a lactate level of 2.3. Procalcitonin was 7.39. UA showed UTI and she was given Rocephin 1 gm IV. WBC was high at 18.8 and she had a left shift with neut 85% and bands 8%. Na was low at 131 and she was also hypokalemic at 3.1. CXR was negative. Dr. James was notified and the pt was admitted to inpatient status in the CCU for further eval and treatment of severe sepsis d/t UTI, a-fib with rvr (new dx), and hypotension. LOS is expected to exceed 2 overnights. Objective Vital signs: Temperature 97.1 F 10/26/17 08:00 Pulse Rate 74 10/26/17 08:00 Respiratory Rate 18 10/26/17 08:00 Blood Pressure 156/87 H 10/26/17 08:00 Pulse Oximetry 94 10/26/17 08:00 Height/Weight/BMI: Height 1.65 m Weight 68.3 kg Body Mass Index 25.9 - Constitutional Present: no acute distress, well nourished, well developed - Routine HEENT Exam Eye: Present: EOMI ENT: Present: mucous membranes moist, dentition normal - Routine Respiratory Exam Present: CTA bilaterally. Absent: wheezes - Routine Cardiovascular Exam Present: RRR, S1, S2. Absent: murmur - Routine Abdominal Exam Present: soft, normoactive bowel sounds, non distended. Absent: tenderness - Routine Extremities Exam Present: normal capillary refill - Routine Skin Exam Present: intact, dry, warm - Routine Neurological Exam Present: alert, oriented X3, CN II-XII intact - Routine Lymphatic Exam Lymphatic: Absent: adenopathy - Routine Psychiatric Exam Present: normal affect, cooperative Hospital Course This is a general summary of the patient's hospital course. For more details refer to the complete medical record. Hospital course: 10/23/17 Admit, inpatient status to CCU under the hospitalist service. Severe sepsis with UTI, hypotension -- she received 500 ml bolus in the ED; will give 1500 more to complete 30 ml/kg bolus. Continue Rocephin daily. Follow results of blood/urine cx. Trend lactate, PCT. A-fib with RVR, hypotension -- Dr. Leung consulted. Lopressor 2.5 mg in ED was not particularly effective in slowing rate. Dig [address] Leung requested [address] head d/t reported confusion -- if no hemorrhage will anticoagulate with Lovenox. Check mg & TSH. Hold antihypertensives (amlodipine & losartan). Echo ordered. Trend trop. Hypokalemia -- KDur 40 mEq now and with supper. Advanced directives -- + DPOA, + Living Will. Full code. 10/24/17 Continue with Rocephin for urinary coverage - check on C/S. Decrease IVF of NS to 75cc/hr. Oral Amiodarone ordered by cardiology - loaded with IV amiodarone yesterday and pt converted to NSR. Blood pressure improving - would continue to hold Norvasc and Losartan for now due to resolving sepsis. Consult with PT/OT tomorrow to start increasing strength and functional status. With HR improved and severe sepsis improving, will transfer to medical floor on tele for continuation of care. Recheck CBC in am due to resolving sepsis and leukocytosis. Repeat CMP and Mg in am due to hyponatremia and medication use. 10/25/17 Continue with Rocephin for urinary coverage - Culture revels E-coli. BP elevated- Will resume home Norvasc and Losartan Appreciate cariology management- Continues on PO amiodarone Lovenox BID tx for anticoagulation Consult with PT/OT today to evaluate strength Pt resides at [facility]. Case discussed with nursing and attending, Dr James 10/26/17- Discharge Liz is seen and examined prior to discharge. She is feeling good without complaints of pain or feeling short of breath. Her to admission. She did reside in assisted living at [facility]. Given her debility secondary to severe sepsis , she will return to [facility], however, will go skilled for further therapy and strengthening. She has been on IV Rocephin for treatment of Escherichia coli positive urinary tract infection. We will transition to Augmentin or continuation of therapy. Overnight she did go into atrial fibrillation with RVR , rate of 148. Cardiology team was contacted patient was given Lopressor 5 milligrams IV. She did convert back to normal sinus, however, did have some noted episodes of cardiac pauses. She will be on Holter monitor outpatient for ongoing evaluation. She was started on anticoagulation by cardiology team. She will continue on a Eliquis 5 mg twice a day. Discussed discharge plan with patient, and 3 daughters. Time spent with patient: discharge greater than 30 minutes Discharge Plan - Discharge Disposition Discharge Date: 10/26/17 Disposition: 03 To [place] Not [facility] [place] *Condition: Stable Reason For Visit (Visit label in EMR): Severe Sepsis, UTI, A-fib - Discharge Medications *Discharge Medications: New Apixaban [Eliquis] 5 mg PO BID #30 tab Amiodarone [Pacerone] 200 mg PO DAILY #30 tab Amox/Clav [Augmentin 875/125] 875 mg PO BID 5 Days #10 tab Continue Omeprazole [Prilosec] 20 mg PO DAILY Losartan Potassium 25 mg PO DAILY Amlodipine [Norvasc] 5 mg PO DAILY Ferrous Sulfate 325 mg PO DAILY Carteolol HCl 1 drop OP DAILY Aspirin Chewable [ASA] 81 mg PO DAILY Cholecalciferol (Vitamin D3) [Vitamin D3] 1 cap PO DAILY Neurontin (gabapentin) 100 mg capsule 100 mg PO BID #180 cap Discontinued Naproxen [Aleve (Naproxen) 220 mg] 1 tab PO QAM - Discharge Packet/Instructions *Diet: Cardiac diet *Activity: Activity as tolerated *Pain Management/Treatment: Tylenol as needed for pain *Wound Care: None Additional Instructions: Take Augmentin antibiotic until gone. yarding supervisor Holter monitor on 11/03/[address] Gagnon office *Expected Signs/Symptoms: Continue to work with theapry and get stronger *Notify Physician if: Fever, chills, shortness of breath or other concerning symptoms *During Business Hours Contact: PCP Dr Rodriguez *After Business Hours Contact: Page oncall Physician for Dr Rodriguez *Pending Lab/Results: No Pending Lab - Referrals/Follow Up *Referrals/Follow Up: Stanislaw Leung MD [Physician] - 11/15/17 2:30 pm (yarding supervisor Holter monitor on at 1300) Volodymyr Rodriguez MD [Family Provider] - (Schedule follow-up appointment for 1 week) - Patient Handouts Patient Handouts: Sepsis (GEN) - Dismissal Complete Discharge Instructions are:: Complete Physician Narrative - Narrative Physician: Liza Liang MD Attestation Narrative: Date: 10/26/17 Time: 1530 I have independently evaluated and examined this patient. I reviewed the chart, the patient's history, and the TUNNEL HEADING INSPECTOR/PA's documented findings as above. We discussed and formulated the assessment and plan as above with additions as below: Mrs. Us was seen family members bedside. Telemetry strips were reviewed by myself demonstrating several pauses yesterday after she received IV metoprolol for rapid atrial fibrillation. After rhythm converted to sinus at about 1:30 AM there's been no further rhythm disturbances. Patient was completely asymptomatic during the arrhythmias noting no dyspnea, palpitations, chest pain, or lightheadedness. Plan for outpatient Holter discussed with cardiology as discussed above. Otherwise Mrs. Us feels good and is anxious to return home for strengthening in the fpc facility at [facility]. Alert, NAD, respirations nonlabored with good airflow and clear breath sounds Regular cardiac rhythm, S1-S2 Stable for discharge.
== END 2017-10-26 14:15 | DRG 871 ==
LOC: ED 09:21 → SUATTDRO 11:24 → CCU 11:24 → MED 10-24 17:00
PROVIDERS: ADMIT Hospitalist; ATTEND Internal Medicine